=== PATIENT | female | born 1955 | race Caucasian/White ===

== ENCOUNTER 2018-09-20 16:20 | Emergency (ER) | payer BC, SELFPAY ==
[2018-09-20 16:20] VITALS: BP 159/81; PULSE 86; RESP 16; TEMP 36.4; O2SAT 98; BMI 33.4
--- NOTE | 2018-09-20 16:49 | ED.VISSUMM ---
- ER Visit Summary Date of Service: 09/20/18 Chief Complaint: Right knee pain post injury or History of Present Illness: The patient is a 63 F past medical history of a prior right knee meniscal tear seen on MRI the past. Patient is also diabetic and has hypertension. She is on Eliquis for hypercoagulable state. She works at an area [employer] was unloading a box and twisted quickly to put it on the ground causing pain in her right knee has progressively worsened since yesterday. She states the right knee hurts on the medial aspect. She denies any other trauma. She denies any fever or redness. She denies any surgery on her right knee in the past. Physical Examination: Well appearing female. Vital signs are stable and afebrile. HEENT exam unremarkable. Neck nontender. Lungs clear to auscultation bilaterally. Heart regular rate and rhythm no murmur. Abdomen soft nontender. Extremities she is moving all 4 with a neurovascular intact. Her right knee has pain on the medial aspect. To palpation. There is no ecchymosis or bruising. No redness or warmth. No effusion or significant swelling. She is able to flex and extend the right knee. Her quadriceps patella and inferior patella tendon are both intact. The ACL and PCL appear to be intact to have good endpoints. The LCL and MCL appear to be intact also. There is no obvious effusion. Currently the tenderness is more along the left lateral and anterolateral knee then over the joint line. The right foot is nontender. Nonswollen. Neurovascular intact. Positive DP pulse. Positive dorsi and plantar flexion. Test Results: Discussed with patient imaging is not needed at this time she is comfortable with that plan. Emergency Department Course and Treatment: [place] for pain. Ice and elevate. Treatment Plan: Ice and elevate. Crutches at home. Limited [place] for pain. Follow-up with her orthopedic physician Dr. Venkat Dailey if not improving. She knows she may need advanced imaging such as an MRI if this is not improving. Disposition: Discharge Impression: Acute right knee sprain Workers comp injury This note was generated with [employer] software. It may contain incorrect words, spelling, and punctuation that were not noted in review of the chart prior to signing ED Disposition - Plan for ED Patient: Chief Complaint: Lower Extremity Injury Referrals: lAec Arceo MD [Primary Care Provider] -
--- NOTE | 2018-09-20 16:54 | ED.DCSUM_ITS ---
- ER Visit Summary Date of Service: 09/20/18 Chief Complaint: Right knee pain post injury or History of Present Illness: The patient is a 63 F past medical history of a prior right knee meniscal tear seen on MRI the past. Patient is also diabetic and has hypertension. She is on Eliquis for hypercoagulable state. She works at an area [email or web address] was unloading a box and twisted quickly to put it on the ground causing pain in her right knee has progressively worsened since yesterday. She states the right knee hurts on the medial aspect. She denies any other trauma. She denies any fever or redness. She denies any surgery on her right knee in the past. Physical Examination: Well appearing female. Vital signs are stable and afebrile. HEENT exam unremarkable. Neck nontender. Lungs clear to auscultation bilaterally. Heart regular rate and rhythm no murmur. Abdomen soft nontender. Extremities she is moving all 4 with a neurovascular intact. Her right knee has pain on the medial aspect. To palpation. There is no ecchymosis or bruising. No redness or warmth. No effusion or significant swelling. She is able to flex and extend the right knee. Her quadriceps patella and inferior patella tendon are both intact. The ACL and PCL appear to be intact to have good endpoints. The LCL and MCL appear to be intact also. There is no obvious effusion. Currently the tenderness is more along the left lateral and anterolateral knee then over the joint line. The right foot is nontender. Nonswollen. Neurovascular intact. Positive DP pulse. Positive dorsi and plantar flexion. Test Results: Discussed with patient imaging is not needed at this time she is comfortable with that plan. Emergency Department Course and Treatment: [place] for pain. Ice and elevate. Treatment Plan: Ice and elevate. Crutches at home. Limited [place] for pain. Follow-up with her orthopedic physician Dr. Venkat Dailey if not improving. She knows she may need advanced imaging such as an MRI if this is not improving. Disposition: Discharge Impression: Acute right knee sprain Workers comp injury This note was generated with [employer] software. It may contain incorrect words, spelling, and punctuation that were not noted in review of the chart prior to signing ED Disposition - Plan for ED Patient: Chief Complaint: Lower Extremity Injury Referrals: Alec Arceo MD [Primary Care Provider] -
--- NOTE | 2018-09-20 16:54 | ED.DEP ---
ED Disposition - Plan for ED Patient: Disposition: Home or Assisted Living Chief Complaint: Lower Extremity Injury Instructions: ED Sprain Knee Prescriptions: Hydrocodone/Acetaminophen [[place] 7.5-325 Tablet] 1 ea PO Q6H PRN PRN #16 tab PRN Reason: Pain Referrals: Alec Arceo MD [Primary Care Provider] - Additional Instructions: Ice and elevate. [place] for pain as needed. Do not drive while using the [place]. Crutches and increase weightbearing activity as tolerated. Call and follow-up with orthopedic doctor Dr. Venkat Dailey if not improving in 1-2 weeks for further evaluation. If pain not improving you may need more advanced imaging such as an MRI. Off work next 2 days.
--- NOTE | 2018-09-20 16:57 | DCINST.ED_ITS ---
ED Disposition - Plan for ED Patient: Disposition: Home or Assisted Living Chief Complaint: Lower Extremity Injury Instructions: ED Sprain Knee Prescriptions: Hydrocodone/Acetaminophen [[place] 7.5-325 Tablet] 1 ea PO Q6H PRN PRN #16 tab PRN Reason: Pain Referrals: Alec Arceo MD [Primary Care Provider] - Additional Instructions: Ice and elevate. [place] for pain as needed. Do not drive while using the [place]. Crutches and increase weightbearing activity as tolerated. Call and follow-up with orthopedic doctor Dr. Venkat Dailey if not improving in 1-2 weeks for further evaluation. If pain not improving you may need more advanced imaging such as an MRI. Off work next 2 days.
[2018-09-20] MEDS: HYDROcodone Bitartrate/Apap 5/325 Tablet PO (17:07)
--- OUTSIDE RECORDS SUMMARY | 2018-11-16 09:24 | XMS RPT_ITS ---
:1955 Author Organization [facility] Address [address] [place] [phone] Phone Care Team Providers Name Role Phone Donn Jarquin Unavailable Reason for Visit Reason For Visit Description Start Date Postop - subsequent visit Preliminary reason for visit data, not yet signed by the author as of left hip post Left hip scope with gluteus medius and minimus repair; allograft augmentation 20 x 18 x 3.6 mm thickness; Trochanteric bursectomy; Iliotibial band resection on 04/13/2018 Preliminary reason for visit data, not yet signed by the author as of Chief Complaint Chief Complaint Description Start Date left hip post Left hip scope with gluteus medius and minimus repair; allograft augmentation 20 x 18 x 3.6 mm thickness; Trochanteric bursectomy; Iliotibial band resection on 04/13/2018 Preliminary chief complaint data, not yet signed by the author as of Instructions Instruction Description Start Date CompletedPatient advised to follow-up with Primary Care Physician for BMI management. Plan of Care Type Date Detail Appointment 11:00 AM Donn GOMEZ, [address], [address], [place], [address], Appointment 10:40 AM Donn GOMEZ, [address], [address], [place], [address], Medications Medication Instructions Start Stop Generic Name NDC Provider Date Date TYLENOL CAPS as needed / ACETAMINOPHEN [id number] Derik R 31 CAPS Mendez FINE B-12 2500 MCG 1 tablet daily / CYANOCOBALAMIN 10541156625 Cara Monroy TABS 02 HAIRSPRING STAKER CENTRUM SILVER 1 tablet daily / MULTIPLE [id number] Cara Mnoroy TABS 02 VITAMINS-MINERAL HAIRSPRING STAKER S FENOFIBRATE 1 capsule daily / FENOFIBRATE 71666300909 Cara Monroy MICRONIZED 200 02 MICRONIZED HAIRSPRING STAKER MG CAPS NORTRIPTYLINE 1 capsule daily / NORTRIPTYLINE 49717181748 Cara Monroy HCL 25 MG CAPS 02 HCL HAIRSPRING STAKER LISINOPRIL-HYDRO 1 tablet daily / LISINOPRIL-HYDRO 63718336533 Cara Monroy CHLOROTHIAZIDE 02 CHLOROTHIAZIDE HAIRSPRING STAKER 10-12.5 MG TABS METFORMIN HCL 1 tablet twice / METFORMIN HCL 30212496742 Cara Monroy 850 MG TABS daily 02 HAIRSPRING STAKER ELIQUIS 2.5 MG 1 tablet twice / APIXABAN 28961387987 Cara Monroy TABS daily 02 HAIRSPRING STAKER CITALOPRAM 1 tablet daily / CITALOPRAM 75732477917 Cara Monroy HYDROBROMIDE 40 02 HYDROBROMIDE HAIRSPRING STAKER MG TABS GLIMEPIRIDE 2 MG 1 tablet daily / GLIMEPIRIDE 74078080129 Cara Monroy TABS 02 HAIRSPRING STAKER METOPROLOL 2 tablets at 2 / METOPROLOL 74879570986 Cara Monroy TARTRATE 50 MG am morning and 02 TARTRATE HAIRSPRING STAKER TABS 1 tablet in the afternoon 1pm Conditions or Problems Problem Name Problem Onset Status Entry Provider Comment Standard Annotate Code Date Date Description Strain of S76.012D Active Derik Lezama Strain of High muscle fascia (ICD-10-C / Laskovski muscle, grade and tendon of M) fascia and glut med left hip tendon of tear subsequent left hip, encounter subsequent encounter Trochanteric M70.62 Active Derik Lezama Trochanteric bursitis left (ICD-10-C / Laskovski bursitis, hip M) left hip Allergies, Adverse Reactions, Alerts Allergy Name Reaction Start Date Severity Status Provider Description WALNUTS Critical Active Cara Monroy HAIRSPRING STAKER WOOL Critical Active Cara Monroy HAIRSPRING STAKER LATEX Critical Active Cara Monroy HAIRSPRING STAKER CODEINE Critical Active Cara Monroy PHOSPHATE HAIRSPRING STAKER Social History No information available. Vital Signs Date Name Value Unit Description BMI (Body Mass 29.16 kg/m2 Body Mass Index Index) [Ratio] Preliminary vital sign data, not yet signed by the author as of BP Diastolic 82 mm[Hg] blood pressure, diastolic Preliminary vital sign data, not yet signed by the author as of BP Systolic 121 mm[Hg] blood pressure, systolic Preliminary vital sign data, not yet signed by the author as of Heart Rate 70 /min pulse rate E&M Preliminary vital sign data, not yet signed by the author as of Height 66 [in_us] height E&M Preliminary vital sign data, not yet signed by the author as of Height 168 cm height in centimeters E&M Preliminary vital sign data, not yet signed by the author as of Weight Measured 180 [lb_av] weight E&M Preliminary vital sign data, not yet signed by the author as of Weight Measured 82 kg weight in kilograms E&M Preliminary vital sign data, not yet signed by the author as of Results Date Name Value Unit Range Flag Description Office Visit: Postop - subsequent visit, Rm: 6 MEDS REVIEW Done Documentation of current medications (procedure) Preliminary observation data, not yet signed by the author as of Preliminary observation data, not yet signed by the author as of Clinical Summary: HMSPatientID GOP account number Procedures Code Procedure Name Date Entry Date G8731 Pain assessment documented as negative - follow-up not required G8427 Current medications documented [id number] Tobacco screening or cessation counseling not performed - unknown reason G8417 BMI documented as above normal parameters - follow-up documented G8783 Blood pressure within normal parameters - no follow-up required [facility]-[id number] Patient Encounter Medications Administered No information available. Immunizations No information available. Advance Directives There may be information available, but it has not been provided by the sender. Assessments There may be information available, but it has not been provided by the sender. Review of Systems There may be information available, but it has not been provided by the sender. Family History There may be information available, but it has not been provided by the sender. History of Past Illness There may be information available, but it has not been provided by the sender. History of Present Illness There may be information available, but it has not been provided by the sender.
--- OUTSIDE RECORDS SUMMARY | 2018-11-16 09:25 | XMS RPT_ITS ---
:1955 Author Organization [facility] Address [address] [place] [phone] Phone Care Team Providers Name Role Phone Mendez FINE, Derik Lezama Unavailable Reason for Visit Reason For Visit Description Start Date New - 1st visit with practice Preliminary reason for visit data, not yet signed by the author as of left hip pain Preliminary reason for visit data, not yet signed by the author as of Chief Complaint Chief Complaint Description Start Date left hip pain Preliminary chief complaint data, not yet signed by the author as of Instructions Instruction Description Start Date CompletedPatient advised to follow-up with Primary Care Physician for BMI management. Plan of Care Type Date Detail Appointment 12:00 PM Derik Simms MD, [address] [place] [address], [address], [place], [address], Pending order XR PELVIS W HIP 2-3 VWS-LT Patient education [id number] Medications Medication Instructions Start Stop Generic Name NDC Provider Date Date -12 2500 MCG 1 tablet daily / CYANOCOBALAMIN 62862319941 Cara TABS 02 Monroy CAR SEAT UPHOLSTERER CENTRUM SILVER 1 tablet daily / MULTIPLE 94935247445 Cara TABS 02 VITAMINS-MINERAL Monroy CAR SEAT UPHOLSTERER S FENOFIBRATE 1 capsule daily / FENOFIBRATE 14113032841 Cara MICRONIZED 200 02 MICRONIZED Monroy CAR SEAT UPHOLSTERER MG CAPS NORTRIPTYLINE 1 capsule daily / NORTRIPTYLINE 50648284177 Cara HCL 25 MG CAPS 02 HCL Monroy CAR SEAT UPHOLSTERER LISINOPRIL-HYDRO 1 tablet daily / LISINOPRIL-HYDRO 50203737340 Cara CHLOROTHIAZIDE 02 CHLOROTHIAZIDE Monroy CAR SEAT UPHOLSTERER 10-12.5 MG TABS METFORMIN HCL 1 tablet twice / METFORMIN HCL 43782796630 Cara 850 MG TABS daily 02 Monroy CAR SEAT UPHOLSTERER ELIQUIS 2.5 MG 1 tablet twice / APIXABAN 09178729818 Cara TABS daily 02 Monroy CAR SEAT UPHOLSTERER CITALOPRAM 1 tablet daily / CITALOPRAM 73795719635 Cara HYDROBROMIDE 40 02 HYDROBROMIDE Monroy CAR SEAT UPHOLSTERER MG TABS GLIMEPIRIDE 2 MG 1 tablet daily / GLIMEPIRIDE 13199839469 Cara TABS 02 Monroy CAR SEAT UPHOLSTERER METOPROLOL 2 tablets at 2 / METOPROLOL 84446729714 Cara TARTRATE 50 MG am morning and 02 TARTRATE Monroy CAR SEAT UPHOLSTERER TABS 1 tablet in the afternoon 1pm Conditions or Problems Problem Name Problem Onset Status Entry Provider Comment Standard Annotate Code Date Date Description Strain of S76.012D Active Derik R Strain of High muscle fascia (ICD-10-C Laskovski muscle, grade and tendon of M) fascia and glut med left hip tendon of tear subsequent left hip, encounter subsequent encounter Trochanteric M70.62 Active Derik R Trochanteric bursitis left (ICD-10-C Laskovski bursitis, hip M) left hip Allergies, Adverse Reactions, Alerts Allergy Name Reaction Start Date Severity Status Provider Description WALNUTS Critical Active Cara Monroy CAR SEAT UPHOLSTERER WOOL Critical Active Cara Monroy CAR SEAT UPHOLSTERER LATEX Critical Active Cara Monroy CAR SEAT UPHOLSTERER CODEINE Critical Active Cara Monroy PHOSPHATE CAR SEAT UPHOLSTERER Social History Concept Description Observation Name Observation Value Units Start Date Employment detail 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 [employer] Preliminary social history data, not yet signed by the author as of Tobacco use and SMOK ADVICE Yes exposure Preliminary social history data, not yet signed by the author as of Vital Signs Date Name Value Unit Description BMI (Body Mass 29.16 kg/m2 Body Mass Index Index) [Ratio] Preliminary vital sign data, not yet signed by the author as of BP Diastolic 88 mm[Hg] blood pressure, diastolic Preliminary vital sign data, not yet signed by the author as of BP Systolic 139 mm[Hg] blood pressure, systolic Preliminary vital sign data, not yet signed by the author as of Heart Rate 79 /min pulse rate E&M Preliminary vital sign [...] Value Unit Range Flag Description Office Visit: New - 1st visit with practice, Rm: MEDS REVIEW Done Documentation of current medications (procedure) Preliminary observation data, not yet signed by the author as of SMOK ADVICE Yes Smoking cessation education (procedure) Preliminary observation data, not yet signed by the author as of Preliminary observation data, not yet signed by the author as of Clinical Summary: HMSPatientID GOP account number Clinical Lists Update: Preload Extended SMOK STATUS current everyday Tobacco smoker smoking status NHIS Clinical Summary: Scanned History Summary DEP EXERCISE No data entered by patient, exercise history DEP DRUG USE No data entered by patient, drug (of abuse) use DEP SH CSMO current everyday smoker data entered by patient, social history, current smoker DEP ETOH USE No data entered by patient, alcohol (ethanol or ETOH) use [employer] 2 floors housing unit size (asthma environmental history, housing) (from single family to don't know) #DEP CHLDRN No Number of dependent children [place] house Housing Type: apartment, house, halfway, trailer, none DEP SH MAST data entered by patient, social history, marital status 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 employed data entered by patient, Employer Name [employer] comments about allergies DEP ALG LIST CodeineLatexWool Data entered by patient, allergy list DEP MED LIST [id number] Data entered by tabs-2am patient, 8lllitagraugww-0gg-9 medication list tab-dailycitalopram jtipilnpakzq-48lq-8 myg-jiiwfzalbqpam-9.5mg -1 tab-twice dailymetformin hcl-850mg-1 tab-twice dailylisinopril and hydrochlorothiazide-10m g/12.5-1 tab-dailynortriptyline hcl-25mg-1 crf-jhbbulrfschzwiil-41 7ra-6vxz-fqnoulrbnjkt silver-Unknown Strength-1 tab-dailyVitamin h-47-5588jp-1 tab-daily [facility] COM Kidney stones medical history of patient's sister, comments DEATHCAU MOM septic from hospital cause of , needle mother MOTHER A/D mother of patient is alive or [facility] MOM [facility] High blood data entered by pressureStroke/TIA patient, mother's medical history DEATHCAU DAD alcoholism cause of , father FATHER A/D father of patient is alive or [facility] DAD [facility] AlcoholismGoutHigh data entered by blood pressureLiver patient, father's diseaseObesity medical history [facility] Blood clotsDiabetes - data entered by non-insulin patient, past dependentDiabetic medical history neuropathyHigh blood pressureHigh cholesterolObesity WEBSURGCOM Rotator Cuff w/mini Web entered open surgical history comments DEP SURGERY Hip [facility] - Data [facility], history otherTonsillectomy of past surgeries Procedures Code Procedure Name Date Entry Date C3576T [facility] [place] COMBO - HIP (BREG) [id number] CRUTCHES - ADULT ([facility]) [id number] MOBILEG ULTRA CRUTCHES (MOBILEGS) G8730 Pain assessment documented as positive - follow-up documented G8427 Current medications documented 4004F Tobacco screening was positive - cessation counseling received G8417 BMI documented as above normal parameters - follow-up documented G8783 Blood pressure within normal parameters - no follow-up required [facility]-[id number] Patient Encounter Medications Administered No information available. [...]
--- OUTSIDE RECORDS SUMMARY | 2018-11-16 09:25 | XMS RPT_ITS ---
:1955 Author Organization OHIP Care Team Providers Name Role Phone Salvador Moreno Attending Unavailable Alec Arceo Primary Care Unavailable Alec Arceo Attending Unavailable Alec Arceo Primary Care Unavailable Alec Arceo Primary Care Unavailable Wes Guzman Attending Unavailable PROBLEMS PROBLEMS DATE TYPE CONDITION / CODE ATTENDING STATUS SOURCE 09/20/2018 Unknown S83.90XA - Wes Morris Active [facility] of unspecified site Community of unspecified Hospital knee, initial Repository encounter / S83.90XA(ICD-10) 11/22/2017 Unknown D68.59 - Other Alec Arceo Active [facility] primary Community thrombophilia / Hospital D68.59(ICD-10) Repository 10/29/2017 Unknown I83.10 - Varicose Salvador Moreno veins of Community unspecified lower Hospital extremity with Repository inflammation / I83.10(ICD-10) 10/29/2017 Unknown 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[facility] (peripheral) / Repository I87.2(ICD-10) 10/29/2017 Unknown I82.813 - Embolism Salvador Moreno and thrombosis of [facility] superficial veins Hospital of lower Repository extremities, bilateral / I82.813(ICD-10) 10/29/2017 Unknown M79.606 - Pain in Salvador Moreno leg, unspecified / Community M79.606(ICD-10) Hospital Repository PROCEDURES PROCEDURES No Procedure Records FoundRESULTS RESULTS EMERGENCY DEPARTMENT Observed: 09/20/2018 Status: F Source: [place] SUMMARY 11:04 PM [facility] [place] [facility] Medical Records Department [address] [place] [address] Emergency Department Summary 09/20/18 1649 MR#: [id number] Acct: [id number] Name: JUANIS ADAME Rep #: [id number] : 1955 63 From: Wes Guzman MD PCP: Alec Arceo MD Status: DEP ER - ER Visit Summary Date of Service: 09/20/18 Chief Complaint: Right knee pain post injury or History of Present Illness: The patient is a 63 F past medical history of a prior right knee meniscal tear seen on MRI the past. Patient is also diabetic and has hypertension. She is on Eliquis for hypercoagulable state. She works at an area [employer] was unloading a box and twisted quickly to put it on the ground causing pain in her right knee has progressively worsened since yesterday. She states the right knee hurts on the medial aspect. She denies any other trauma. She denies any fever or redness. She denies any surgery on her right knee in the past. Physical Examination: Well appearing female. Vital signs are stable and afebrile. HEENT exam unremarkable. Neck nontender. Lungs clear to auscultation bilaterally. Heart regular rate and rhythm no murmur. Abdomen soft nontender. Extremities she is moving all 4 with a neurovascular intact. Her right knee has pain on the medial aspect. To palpation. There is no ecchymosis or bruising. No redness or warmth. No effusion or significant swelling. She is able to flex and extend the right knee. Her quadriceps patella and inferior patella tendon are both intact. The ACL and PCL appear to be intact to have good endpoints. The LCL and MCL appear to be intact also. There is no obvious effusion. Currently the tenderness is more along the left lateral and anterolateral knee then over the joint line. The right foot is nontender. Nonswollen. Neurovascular intact. Positive DP pulse. Positive dorsi and plantar flexion. Test Results: Discussed with patient imaging is not needed at this time she is comfortable with that plan. Emergency Department Course and Treatment: [place] for pain. Ice and elevate. Treatment Plan: Ice and elevate. Crutches at home. Limited [place] for pain. Follow-up with her orthopedic physician Dr. Venkat Dailey if not improving. She knows she may need advanced imaging such as an MRI if this is not improving. Disposition: Discharge Impression: Acute right knee sprain Workers comp injury This note was generated with Routeware dictation software. It may contain incorrect words, spelling, and punctuation that were not noted in review of the chart prior to signing ED Disposition - Plan for ED Patient: Chief Complaint: Lower Extremity Injury Referrals: Alec Arceo MD [Primary Care Provider] - What to do if you have Problems For any increased pain, shortness of breath, bleeding, nausea or vomiting, chest pain, or any unexpected problems, contact your Primary Care Provider. Call [facility] ([phone]) or report to the closest Emergency Room. Call 911 if necessary. 09/20/18 2974 <Electronically signed by Wes Guzman MD> Date Wes Guzman MD Cosigner Signature (If Indicated): Date CC: Alec Arceo MD DISCHARGE INSTRUCTION Observed: 09/20/2018 Status: F Source: [place] 11:04 PM [facility] Records Department [address] [place] [address] Discharge Instruction 09/20/18 1654 MR#: [id number] Acct: [id number] Name: JUANIS ADAME Rep #: [id number] : 1955 63 From: Wes Guzman MD PCP: Alec Arceo MD Status: DEP ER ED Disposition - Plan for ED Patient: Disposition: Home or Assisted Living Chief Complaint: Lower Extremity Injury Instructions: ED Sprain Knee Prescriptions: Hydrocodone/Acetaminophen [[place] 7.5-325 Tablet] 1 ea PO Q6H PRN PRN #16 tab PRN Reason: Pain Referrals: Alec Arceo MD [Primary Care Provider] - Additional Instructions: Ice and elevate. [place] for pain as needed. Do not drive while using the [place]. Crutches and increase weightbearing activity as tolerated. Call and follow-up with orthopedic doctor Dr. Venkat Dailey if not improving in 1-2 weeks for further evaluation. If pain not improving you may need more advanced imaging such as an MRI. Off work next 2 days. What to do if you have Problems For any increased pain, shortness of breath, bleeding, nausea or vomiting, chest pain, or any unexpected problems, contact your Primary Care Provider. Call [facility] ([phone]) or report to the closest Emergency Room. Call 911 if necessary. 09/20/18 3094 <Electronically signed by Wes Guzman MD> Date Wes Guzman MD Cosigner Signature (If Indicated): Date CC: Alec Arceo MD HOMOCYSTEINE Collected: 11/11/2017 Status: F Source: [place] 1:11 PM [facility] [place] TYPE CODE TESTS RESULT OUT OF REFERENCE UNITS RANGE LAB L503.8001 3.2-10.7 umol/L HOMOCYSTEINE High 14.5 Performed By: #### L503.8001 #### [facility] Laboratory [address] [place], [address] MISCELLANEOUS LAB Collected: 11/11/2017 Status: F Source: [place] PROCEDURE 1:11 PM [facility] [place] Order Comment: Comments: [id number] PROT C ACTIVITY FZ PL Test(s) Ordered: [id number] PROT C ACTIVITY FZ PL TYPE CODE TESTS RESULT OUT OF RANGE REFERENCE UNITS LAB L801.1541 Normal MISC LAB TEST Result Comment: TEST RESULT LIMITS Prt C Activity (Chromogenic) 141 % Reference Range: 17 years and older: 73 - 180 TESTING PERFORMED AT [facility]. ORIGINAL REPORT ON FILE IN LAB CONTAINS ADDITIONAL TEST SITE INFORMATION. Performed By: #### L801.1541 #### [facility] [address] [place], [address] PROTEIN S, FUNCTIONAL Collected: 11/11/2017 Status: F Source: [place] 1:11 PM [facility] [place] [facility] Order Comment: Comments: [id number] PROT C ACTIVITY FZ PL TYPE CODE TESTS RESULT OUT OF RANGE REFERENCE UNITS LAB L3100.7260 63-140 % Normal PROTEIN S, 94 FUNC Result Comment: Protein S activity may be falsely increased (masking an abnormal, low result) in patients receiving direct Xa inhibitor (e.g., rivaroxaban, apixaban, edoxaban) or a direct thrombin inhibitor (e.g., dabigatran) anticoagulant treatment due to assay interference by these drugs. Performed at: [facility] [id number] Blood Donor Unit Assistant: Chan Ivan MD, Phone: [phone] Performed at: [facility] [address] [place], [place] [id number] Blood Donor Unit Assistant: Maylin Leger MD, Phone: [phone] Performed By: #### L3100.7250, L4500.0100, L4500.2000, L4500.5000, L4600.0155 #### [facility] (refer to report for specific site) refer to report for address and phone number LUPUS ANTICOAGULANT COMP Collected: 11/11/2017 Status: F Source: [place] 1:11 PM [facility] [place] Order Comment: Comments: [id number] PROT C ACTIVITY FZ PL TYPE CODE TESTS RESULT OUT OF REFERENCE UNITS RANGE LAB L4500.0125 0.0-55.0 sec DILUTE PT (dPT) Normal 47.6 LAB L4500.0150 0.00-1.40 Ratio dPT Conf. Ratio Normal 1.11 LAB L4500.0200 0.0-23.0 sec THROMBIN TIME Normal 21.1 LAB L4500.0600 0.0-51.9 sec PTT-LA Normal 29.0 LAB L4500.1000 0.0-47.0 sec DRVVT Normal 42.5 LAB L4500.1300 . Interpretation Normal Comment: Result Comment: No lupus anticoagulant was detected. Performed By: #### L3100.7250, L4500.0100, L4500.2000, L4500.5000, L4600.0155 #### [facility] (refer to report for specific site) refer to report for address and phone number FACTOR II, DNA Collected: 11/11/2017 Status: F Source: [place] ANALYSIS 1:11 PM [facility] [place] Order Comment: Comments: [id number] PROT C ACTIVITY FZ PL TYPE CODE TESTS RESULT OUT OF RANGE REFERENCE UNITS LAB L4500.2100 . Normal FACTOR Comment II,DNA Result Comment: NEGATIVE No mutation identified. Comment: A point mutation (Z16307M) in the factor II (prothrombin) gene is the second most common cause of inherited thrombophilia. The incidence of this mutation in the [place] population is about 2% and in the population it is approximately 0.5%. This mutation is rare in the and population. Being heterozygous for a prothrombin mutation increases the risk for developing venous thrombosis about 2 to 3 times above the general population risk. Being homozygous for the prothrombin gene mutation increases the relative risk for venous thrombosis further, although it is not yet known how much further the risk is increased. In women heterozygous for the prothrombin gene mutation, the use of estrogen containing oral contraceptives increases the relative risk of venous thrombosis about 16 times and the risk of developing cerebral thrombosis is also significantly increased. In the prothrombin gene mutation increases risk for venous thrombosis and may increase risk for stillbirth, placental abruption, pre-eclampsia and growth restriction. If the patient possesses two or more congenital or acquired thrombophilic risk factors, the risk for thrombosis may rise to more than the sum of the risk ratios for the individual mutations. This assay detects only the prothrombin Q34342H mutation and does not measure genetic abnormalities elsewhere in the genome. Other thrombotic risk factors may be pursued through systematic clinical laboratory analysis. These factors include the R506Q (Leiden) mutation in the Factor V gene, plasma homocysteine levels, as well as testing for deficiencies of antithrombin III, protein C and protein S. LAB L4500.0824 . Normal COMMENT Comment Result Comment: Genetic Counselors are available for health care providers to discuss results at [phone] Methodology: DNA analysis of the Factor II gene was performed by PCR amplification followed by restriction analysis. The diagnostic sensitivity is >99% for both. All the tests must be combined with clinical information for the most accurate interpretation. Molecular-based testing is highly accurate, but as in any laboratory test, diagnostic errors may occur. This test was developed and its performance characteristics determined by [employer]. It has not been cleared or approved by the Food and Drug Administration. Poort SR, et al. Blood. 1996; 88:3398-0651. Delfina EA. Circulation. 2004; 110:e15-e18. Dakota I, et al. Arterioscler Thromb Vasc Biol. 1999; 19:700-703. Dorothea Saucedo, PhD, [facility] Cara Dubon, PhD, [facility] Nimco Murillo, PhD, [facility] Elisabeth Singh M.S., PhD, [facility] Taty Marte, PhD, [facility] Aaliyah Valverde, PhD, [facility] Aaorn Steen, PhD, [facility] Performed By: #### L3100.7250, L4500.0100, L4500.2000, L4500.5000, L4600.0155 #### [facility] (refer to report for specific site) refer to report for address and phone number FACT V LEIDEN Collected: 11/11/2017 Status: F Source: [place] MUTATION 1:11 PM [facility] [place] Order Comment: Comments: [id number] PROT C ACTIVITY FZ PL TYPE CODE TESTS RESULT OUT OF REFERENCE UNITS RANGE LAB L4500.5100 . High FACTOR V Comment LEIDEN Result Comment: RESULT: SINGLE R506Q MUTATION IDENTIFIED (HETEROZYGOTE) Factor V Leiden is a specific mutation (R506Q) in the factor V gene that is associated with an increased risk of venous thrombosis. Factor V Leiden is more resistant to inactivation by activated protein C. As a result, factor V persists in the circulation leading to a mild hypercoagulable state. Factor V Leiden has been reported in patients with deep vein thrombosis, pulmonary embolus, central retinal vein occulsion, cerebral sinus thrombosis, and hepatic vein thrombosis. The relative risk of venous thrombosis is increased approximately 4-8 fold in individuals who are heterozygous. About 3-8% of the general [place] and population are heterozygous. The risk of venous thrombosis increases exponentially in patients with more than one risk factor, including: age, surgery, oral contraceptive use, , elevated homocysteine levels, or a Factor II/prothrombin mutation (K48603K). Additionally, for individuals found to be heterozygous for the Factor V Leiden mutation, presence of a second mutation, Factor V R2, further increases the risk if venous thrombosis. Contact [facility]'s Genetics Customer Service at for further information on both the Factor II (Prothrombin) DNA Analysis, and Factor V R2 DNA Analysis tests. LAB L4500.5200 . Normal COMMENT Comment Result Comment: Genetic counselors are available for health care providers to discuss results at [phone] Methodology: DNA analysis of the Factor V gene was performed by allele- specific PCR. The diagnostic sensitivity and specificity is >99% for both. Molecular-based testing is highly accurate, but as in any laboratory test, diagnostic errors may occur. All test results must be combined with clinical information for the most accurate interpretation. This test was developed and its performance characteristics determined by [facility]. It has not been cleared or approved by the Food and Drug Administration. References: Dayo Montana (1996). Clin Lab Med 16:169-186. Dorothea Saucedo, PhD, [facility] Cara Dubon, PhD, [facility] Nimco Murillo, PhD, [facility] Elisabeth Singh M.S., PhD, [facility] Taty Marte, PhD, [facility] Aaliyah Valverde, PhD, [facility] Aaron Steen PhD, [facility] Performed By: #### L3100.7250, L4500.0100, L4500.2000, L4500.5000, L4600.0155 #### [facility] (refer to report for specific site) refer to report for address and phone number MTHFR DNA VARIANT Collected: 11/11/2017 Status: F Source: [place] 1:11 PM [facility] [place] Order Comment: Comments: [id number] PROT C ACTIVITY FZ PL TYPE CODE TESTS RESULT OUT OF RANGE REFERENCE UNITS LAB L4600.0205 . Normal MTHFR DNA Comment Result Comment: Result: C677T/F8217M Two mutations (C677T and G1341R) identified Interpretation: This individual is heterzygous for both the MTHFR C677T and C8733P variants (one copy of each). Compound heterozygosity for the C677T and G3946J variants is unlikely to be of clinical significance, based on consensus of published reports. This combination of results, however, may be associated with increased risk for the development of hyperhomocysteinemia when the individual is deficient in folate, vitamin B6, or vitamin B12. A fasting homocysteine level should be measured. This genotype alone in the absence of hyperhomocysteinemia, does not increase risk of venous thrombosis, coronary artery disease or recurrent loss. However, hyperhomocysteinemia may also occur due to mutations in enzymes other than MTHFR that are involved in homocysteine metabolism, or arise due to acquired factors. In the evaluation of vascular and obstetric risk, consider measuring fasting homocysteine. Additional risk factors may be detected through systematic clinical laboratory analysis. LAB L4600.0250 Normal COMMENT Result Comment: Methylenetetrahydrofolate reductase (MTHFR) is a ochoa enzyme in the folate pathway and is responsible for the metabolism of homocysteine. There are two common variants in the MTHFR gene, c.655c>T (p.Dej798Xddc), referred to as C677T, and c.1286A>C (p.Aic151Obx), referred to as I7314K. Individuals homozygous for C677T (two copies of the variant), have decreased activity of the MTHFR enzyme and a predisposition to hyperhomocysteinemia, particularly when deficient in folate. Hyperhomocysteinemia is a risk factor for venous thrombosis and coronary artery disease and is associated with an increased risk of open neural tube defects. The C677T variant does not independently increase risk of these conditions in the absence of hyperhomocysteinemia. The C4301P variant is not associated with elevated homocysteine levels unless a C677T variant is also present; however, the clinical significance of heterozygosity for both C677T and X2097S is controversial. Population data suggest that these two variants are not present on the same chromosome, but rare exceptions have been reported of triple variant MTHFR genotypes (ie. homozygous for one variant and heterozygous for the other). Homozygosity for C677T has an estimated frequency of 10% to 15% in Caucasians and 25% in Hispanics. Additional information: Dietary folic acid, B6 and B12 supplementation has been suggested to lower homocysteine levels in some people. Folic acid supplementation has been shown to reduce the occurrence of neural tube defects. Genetic counselors are available for health care providers to discuss results at [phone]. Methodology: DNA analysis of the MTHFR gene was performed by PCR amplification followed by restriction analysis. The diagnostic sensitivity is >99% for both. Molecular-based testing is highly accurate, but as in any laboratory test, rare diagnostic errors may occur. All test results must be combined with clinical information for the most accurate interpretation. This test was developed and its performance characteristics determined by [employer]. It has not been cleared or approved by the Food and Drug Administration. References: Lennyo LD, York Q. Am J Epidemiol 2000; 151(9):862-877. Marci MM, Charles JA. Arch Pathol Lab Med 2007; 131(6):872-884. Frosst P et al. Yvette Teagan 1995; 10(1):111-113. Shareekey SE et al. Teagan Med 2013; 15(2):153-156. Colbert C et al. Obstet Gynecol 2011; 118(3):730-740. Jus B et al. Eur J Epidemiol 2013; 28(8):621-647. Dorothea Saucedo, PhD, [facility] Cara Dubon, PhD, [facility] Nimco Murillo, PhD, [facility] Elisabeth Singh M.S., PhD, [facility] Taty Marte, PhD, [facility] Aaliyah Valverde, PhD, [facility] Aaron Steen, PhD, [facility] Performed By: #### L3100.7250, L4500.0100, L4500.2000, L4500.5000, L4600.0155 #### [facility] (refer to report for specific site) refer to report for address and phone number VENOUS DUPLEX LOWER Observed: 10/29/2017 Status: F Source: [place] EXTREMITY 4:44 PM [facility] [place] [facility] Cardiovascular Services [address] [place] [address] Venous Duplex US - Fly Extrem 10/29/17 0938 MR#: [id number] Acct: [id number] Name: JUANIS ADAME Rep #: [id number] : 1955 62 From: Salvador Moreno MD Attending Dr: Salvador Moreno MD Status: REG CLI Ordering Dr: Salvador Moreno MD Date: 10/29/17 Location: [facility] Sex: F C Admitted: Reason For Study: F/U SVT RIGHT LEFT CFV is compressible, spontaneous, phasic, CFV is compressible, spontaneous, phasic, competent and demonstrates normal competent, and demonstrates normal augmentation. augmentation. FV is compressible, spontaneous, phasic, FV is compressible, spontaneous, phasic, competent and demonstrates normal competent and demonstrates normal augmentation. augmentation. POP V is compressible, spontaneous, phasic, POP V is compressible, spontaneous, phasic, competent and demonstrates normal competent and demonstrates normal augmentation. augmentation. T/P Trunk is compressible. T/P Trunk is compressible. PTV is compressible. PTV is compressible. RT PerV is compressible. LT PerV is compressible. GSV is non -compressible from prox thigh to GSV is non-compressible from mid thigh to ankle ankle SSV is non-compressible from prox calf to SSV is compressible. ankle. Procedure Exam performed in department. Interpretation Summary Deep veins of the lower extremities are bilaterally patent and compressible segmentally. There is no evidence of deep vein thrombosis on either side. Valvular competence appears intact within the proximal deep venous systems bilaterally. Acute superficial thrombophlebitis is noted in the right great saphenous vein from the right proximal thigh to the ankle. Acute superficial thrombophlebitis is noted in the left great saphenous vein from the left mid- thigh to the ankle. Acute superficial thrombophlebitis is noted in the right small saphenous vein from the right proximal calf to the ankle, which is a new development since a prior study on 09/24/2017. The left small saphenous vein is patent and compressible. Other than the presence of superficial thrombophlebitis in the right small saphenous vein, there have been no other significant changes since a prior study on 09/24/2017. Ordering Physician: Salvador Moreno Performed By: Rosalia Price RVT 10/29/174 Date Salvador Moreno MD CC: Salvador Moreno MD; Alec Arceo Date Dictated: 10/29/17 0938 Date Transcribed: 10/29/171643 Higher Education Administrator: Signed ALLERGIES ALLERGIES DATE TYPE / CODE NAME / CODE REACTION SEVERITY SOURCE 09/20/2018 Drug codeine/F006 Nausea Unknown [place] Allergy/[id number](S 990591([facility]) M) Hospital Repository 09/20/2018 Miscellaneous walnuts Anaphylaxis Unknown [place] Allergy/563946106(S [facility]) Hospital Repository ENCOUNTERS ENCOUNTERS ADMIT/DISCHARGE ACCOUNT ADMITTING ENCOUNTER LOCATION SOURCE NUMBER CLASS 09/20/2018/ [id number] Emergency [place] 8 5 [facility] ing:ED Repository 11/11/2017 [id number] Ambulatory [place] 2 [facility] ing:LAB Repository 10/29/2017 [id number] Ambulatory [place] 4 [facility] ing:CVS Repository PAYERS PAYERS ENCOUNTER GUARANTOR PAYER SUBSCRIBER SOURCE 09/20/2018 JUANIS Mac Primary JUANIS Mac [place] [id number] [facility] Insurance:MICHELA [facility]ANDOB[facility]: [id number] Hospital 004[address]Mdh: [phone] [id number] Repository [phone] (HP) Date:[id number] CK CMSP [id number] [place] [address] 16725ZW: 09/20/2018 Secondary PETE P [place] Insurance:ANTHEMPolic MCKEANDOB: Community y Number: [id number] Hospital [id number] Repository Date:[id number] [place] [address] 88446LG: 09/20/2018 Tertiary NOT GIVENUNK [place] Insurance:SELF PAY [facility] Number: Effective Repository Date:2018-09-20 11/11/2017 Juanis L Primary Pete P [place] [id number] [facility] Insurance:ANTHEMPolic MckeanD[facility] y Number: [id number] Hospital 35[address]Cmw: (087) [id number] Repository [phone] (HP) Date:2394-19-19[address] [place] [address] 39617DO: 11/11/2017 Secondary NOT GIVENUNK [place] Insurance:SELF PAY [facility] Number: Effective Repository Date:2017-11-11 10/29/2017 Juanis L Primary Pete P [place] [id number] [facility] Insurance:ANTHEMPolic MckeanDOB: [facility] y Number: [id number] Hospital [id number]: ([phone]) [id number] Repository [phone] (HP) Date:[id number] [address] [address] [place] [id number]: 10/29/2017 Secondary NOT GIVENUNK [place] Insurance:SELF PAY [facility] Number: Effective Repository Date:2017-10-19
--- OUTSIDE RECORDS SUMMARY | 2018-11-16 09:25 | XMS RPT_ITS ---
:1955 Author Organization [facility] Address [address] [place] [id number] Phone Care Team Providers Name Role Phone Mendez FINE, Derik Howard Reason for Visit Reason For Visit Description [...] Plan of Care Type Date Detail Appointment 10:00 AM Derik Simms MD, [address], [address], [place], [address], Appointment 11:00 AM Donn GOMEZ, [address], [address], [place], [address], Medications Medication Instructions Start Stop Generic Name NDC Provider Date Date TYLENOL CAPS as needed ACETAMINOPHEN [id number] Derik Wolfe CAPS Mendez FINE B-12 2500 MCG 1 tablet daily / CYANOCOBALAMIN [id number] Cara Monroy TABS 02 HEALTH UNIT SUPERVISOR CENTRUM SILVER 1 tablet daily / MULTIPLE [id number] Cara Monroy TABS 02 VITAMINS-MINERAL HEALTH UNIT SUPERVISOR S FENOFIBRATE 1 capsule daily / FENOFIBRATE [id number] Cara Monroy MICRONIZED 200 02 MICRONIZED HEALTH UNIT SUPERVISOR MG CAPS NORTRIPTYLINE 1 capsule daily / NORTRIPTYLINE [id number] Cara Monroy HCL 25 MG CAPS 02 HCL HEALTH UNIT SUPERVISOR LISINOPRIL-HYDRO 1 tablet daily / LISINOPRIL-HYDRO 16176683638 Cara Monroy CHLOROTHIAZIDE 02 CHLOROTHIAZIDE HEALTH UNIT SUPERVISOR 10-12.5 MG TABS METFORMIN HCL 1 tablet twice / METFORMIN HCL [id number] Cara Monroy 850 MG TABS daily 02 HEALTH UNIT SUPERVISOR ELIQUIS 2.5 MG 1 tablet twice / APIXABAN 39129733467 Cara Monroy TABS daily 02 HEALTH UNIT SUPERVISOR CITALOPRAM 1 tablet daily / CITALOPRAM 74281997111 Cara Monroy HYDROBROMIDE 40 02 HYDROBROMIDE HEALTH UNIT SUPERVISOR MG TABS GLIMEPIRIDE 2 MG 1 tablet daily / GLIMEPIRIDE 47396099173 Cara Monroy TABS 02 HEALTH UNIT SUPERVISOR METOPROLOL 2 tablets at 2 / METOPROLOL 37325803621 Cara Monroy TARTRATE 50 MG am morning and 02 TARTRATE HEALTH UNIT SUPERVISOR TABS 1 tablet in the afternoon 1pm [...] Provider Description WALNUTS Critical Active Cara Monroy HEALTH UNIT SUPERVISOR WOOL Critical Active Cara Monroy HEALTH UNIT SUPERVISOR LATEX Critical Active Cara Monroy HEALTH UNIT SUPERVISOR CODEINE Critical Active Cara Monroy PHOSPHATE HEALTH UNIT SUPERVISOR Social History No information available. Vital Signs Date Name Value Unit Description BMI (Body Mass 29.16 kg/m2 Body Mass Index Index) [Ratio] Preliminary vital sign data, not yet signed by the author as of BP Diastolic 85 mm[Hg] blood pressure, diastolic Preliminary vital sign data, not yet signed by the author as of BP Systolic 139 mm[Hg] blood pressure, systolic Preliminary vital sign data, not yet signed by the author as of Heart Rate 65 /min pulse rate E&M Preliminary vital sign [...] Office Visit: Postop - subsequent visit, Rm: 5 MEDS REVIEW Done Documentation of current medications [...] within normal parameters - no follow-up required [facility]-[id number] Patient Encounter Medications Administered No information available. [...]
--- OUTSIDE RECORDS SUMMARY | 2018-11-16 09:25 | XMS RPT_ITS ---
:1955 Author Organization [facility] Address [address] [place] [id number] Phone Care Team Providers Name Role Phone Mednez FINE, Derik Howard Reason for Visit Reason For Visit Description Start Date Postop - 1st visit Preliminary reason for visit data, not yet signed by the author as of left hip post Left hip scope with gluteus medius and minimus repair; allograft augmentation and 20 x 18 x 3.6 mm thickness; Trochanteric bursectomy; Iliotibial band resection on 04/13/2018 Preliminary reason for visit data, not yet signed by the author as of Chief Complaint Chief Complaint Description Start Date left hip post Left hip scope with gluteus medius and minimus repair; allograft augmentation and 20 x 18 x 3.6 mm thickness; Trochanteric bursectomy; Iliotibial band resection on 04/13/2018 Preliminary chief complaint data, not yet signed by the author as of Instructions Instruction Description Start Date Completed Plan of Care Type Date Detail Appointment 09:00 AM Derik Simms MD, [address], [address], [place], [address], Appointment 09:45 AM Marguerite Moncada PT, [address], [place], [address], Medications Medication Instructions Start Stop Generic Name NDC Provider Date Date PERCOCET 5-325 as needed as / OXYCODONE-ACETAM [id number] Derik Lezama MG TABS directed 03 STEPHANIE Simms MD NAPROSYN 500 MG Take 1 tablet / NAPROXEN [id number] Donn A TABS by mouth once a 11 Katheryn PAC day B-12 2500 MCG 1 tablet daily / CYANOCOBALAMIN 64336487971 Cara Monroy TABS 02 CULTURE MANAGER CENTRUM SILVER 1 tablet daily / MULTIPLE 89397538180 Cara Monroy TABS 02 VITAMINS-MINERAL CULTURE MANAGER S FENOFIBRATE 1 capsule daily / FENOFIBRATE 90055830698 Cara Monroy MICRONIZED 200 02 MICRONIZED CULTURE MANAGER MG CAPS NORTRIPTYLINE 1 capsule daily / NORTRIPTYLINE 71560862873 Cara Monroy HCL 25 MG CAPS 02 HCL CULTURE MANAGER LISINOPRIL-HYDRO 1 tablet daily / LISINOPRIL-HYDRO 41093344704 Cara Monroy CHLOROTHIAZIDE 02 CHLOROTHIAZIDE CULTURE MANAGER 10-12.5 MG TABS METFORMIN HCL 1 tablet twice / METFORMIN HCL 33051895400 Cara Monroy 850 MG TABS daily 02 CULTURE MANAGER ELIQUIS 2.5 MG 1 tablet twice / APIXABAN 83546715424 Cara Monroy TABS daily 02 CULTURE MANAGER CITALOPRAM 1 tablet daily / CITALOPRAM 47872393638 Cara Monroy HYDROBROMIDE 40 02 HYDROBROMIDE CULTURE MANAGER MG TABS GLIMEPIRIDE 2 MG 1 tablet daily / GLIMEPIRIDE 21714835322 Cara Monroy TABS 02 CULTURE MANAGER METOPROLOL 2 tablets at 2 / METOPROLOL 28743755080 Cara Monroy TARTRATE 50 MG am morning and 02 TARTRATE CULTURE MANAGER TABS 1 tablet in the afternoon 1pm Conditions or Problems Problem Name Problem Onset Status Entry Provider Comment Standard Annotate Code Date Date Description Strain of S76.012D Active Derik Lezama Strain of High muscle fascia (ICD-10-C / Franki muscle, grade and tendon of M) fascia and glut med left hip tendon of tear subsequent left hip, encounter subsequent encounter Trochanteric M70.62 Active Derik Lezama Trochanteric bursitis left (ICD-10-C / Mendez bursitis, hip M) left hip Allergies, Adverse Reactions, Alerts Allergy Name Reaction Start Date Severity Status Provider Description WALNUTS Critical Active Cara Monroy CULTURE MANAGER WOOL Critical Active Cara Monroy CULTURE MANAGER LATEX Critical Active Cara Monroy CULTURE MANAGER CODEINE Critical Active Cara Monroy PHOSPHATE CULTURE MANAGER Social History No information available. Vital Signs Date Name Value Unit Description BMI (Body Mass 29.16 kg/m2 Body Mass Index Index) [Ratio] Preliminary vital sign data, not yet signed by the author as of BP Diastolic 79 mm[Hg] blood pressure, diastolic Preliminary vital sign data, not yet signed by the author as of BP Systolic 117 mm[Hg] blood pressure, systolic Preliminary vital sign data, not yet signed by the author as of Heart Rate 63 /min pulse rate E&M Preliminary vital sign [...] Range Flag Description Office Visit: Postop - 1st visit, Rm: 7 MEDS REVIEW Done Documentation of current medications (procedure) Preliminary observation data, not yet signed by the author as of Preliminary observation data, not yet signed by the author as of Clinical Summary: HMSPatient[facility] GOP account number Procedures Code Procedure Name Date Entry Date CPT-34332 Physical Therapy CPT-27156 Physical Therapy G8730 Pain assessment documented as positive - follow-up documented G8427 Current medications documented 4004F-8P Tobacco screening or cessation counseling not performed - unknown reason G8419 BMI outside of normal parameters - no follow-up plan/reason not given G8783 Blood pressure within normal parameters - no follow-up required [facility]-[id number] Patient Encounter Medications Administered No information available. [...]
== END 2018-09-20 17:12 | disposition home or self-care (01) ==
PROVIDERS: Emergency Provider Emergency Medicine; Family Provider Family Medicine; PCP Family Medicine
DX: S83.91XA Sprain of unspecified site of right knee, initial encounter (principal); X50.1XXA Overexertion from prolonged static or awkward postures, initial encounter; Y93.89 Activity, other specified; Y92.512 Supermarket, store or market as the place of occurrence of the external cause; Y99.0 Civilian activity done for income or pay; I10 Essential (primary) hypertension; E11.9 Type 2 diabetes mellitus without complications; Z79.84 Long term (current) use of oral hypoglycemic drugs; Z79.01 Long term (current) use of anticoagulants; Z79.899 Other long term (current) drug therapy; Z87.891 Personal history of nicotine dependence
CPT/HCPCS: 99283

== ENCOUNTER → 2020-06-07 09:05 | Outpatient (CLI) | payer OTHER, SELFPAY ==
--- NOTE | 2020-06-07 09:21 | US_ITS ---
STUDY: ABDOMINAL ULTRASOUND REASON FOR EXAM: Female, 64 years old. INTERMITTENT EPIGASTRIC PAIN, NAUSEA, BLOATING X 3 WEEKS TECHNIQUE: Transabdominal ultrasound was performed with real-time and static pablo scale imaging. TECHNICAL QUALITY: Limited. Examination limited due to a combination of factors including obesity and bowel gas. COMPARISON: None. FINDINGS: Liver: The liver measures 17.7 cm. There is increased echogenicity consistent with fatty infiltration. The bile ducts are within normal limits. There is hepatic color flow. The direction of portal flow is hepatopetal. There is no demonstrated mass lesion. Portal vein measurement: Gallbladder: Normal distended gallbladder. The gallbladder wall is mildly thickened and measures 3.6 mm. There is a negative sonographic Wright''s sign. There is no pericholecystic fluid. There are multiple echogenic structures within the gallbladder, consistent with multiple gallstones. Common Bile Duct (C.B.D.): The common bile duct measures 3.6 mm. Pancreas: Normal size of the head, body of the pancreas. The tail portion is obscured uterine bowel gas. There is normal echogenicity of the pancreas. There is no demonstrated pancreatic mass or cyst. Spleen: Normal size of the spleen. The spleen measures 9.9 cm x 3.9 cm x 4 cm. Right Kidney: Normal size of the right kidney. The right kidney measures 10.9 cm x 5 cm x 4.8 cm. Normal renal cortex. The right cortex measures 1.1 cm. There is no demonstrated renal mass or cyst. There is no right hydronephrosis. Left Kidney: Normal size of the left kidney. The left kidney measures 9.7 cm x 4.3 cm x 5.4 cm. Normal renal cortex. The left cortex measures 1.4 cm. There is no demonstrated renal mass or cyst. There is no left hydronephrosis. Aorta: Unremarkable I.V.C.: The IVC is patent. There is no ascites. US/Abdomen Complete IMPRESSION: Fatty infiltration of the liver. Multiple gallstones and mild thickening of the gallbladder wall. Electronically Signed: Marvin Hanley, at 13:18 EDT , Service support ,
== END ==
PROVIDERS: PCP Family Medicine; Referring Provider Family Medicine; Visit Provider Family Medicine
DX: R10.13 Epigastric pain (principal); R11.0 Nausea
CPT/HCPCS: 76700

== ENCOUNTER 2020-06-20 05:24 | Day surgery (SDC) | payer OTHER, SELFPAY ==
[2020-06-12 13:14] VITALS: BMI 33.4
--- NOTE | 2020-06-13 14:52 | EKG12_ITS ---
Test Reason : PREOP Blood Pressure : / mmHG Vent. Rate : 076 BPM Atrial Rate : 076 BPM P-R Int : 206 ms QRS Dur : 084 ms QT Int : 420 ms P-R-T Axes : 067 004 049 degrees QTc Int : 472 ms Sinus rhythm with occasional Premature ventricular complexes Otherwise normal ECG Confirmed by CHRISTOPHER FINE, DALTON ([id number]), commissioning editor DANUTA PICHARDO ([id number]) on 06/17/2020 9:31:01 AM Referred By: uGs Cruz Confirmed By:GWEN WHITE MD
[2020-06-13 15:51] LABS: Hematocrit 48.8 % (37-47); Hemoglobin 15.8 g/dL (12.0-15.0); Mean Corp Hgb Conc 32.4 g/dL (32-36); Mean Corpuscular Hgb 29.6 pg (27.0-32.0); Mean Corpuscular Volume 91.4 fL (81-99); Platelet Count 274 K/mm3 (150-450); RBC Distribution Width CV 13.9 % (11.6-14.6); RBC Distribution Width SD 46.8 fl (35.1-43.9); Red Blood Count 5.34 M/mm3 (4.2-5.4); White Blood Count 8.3 K/mm3 (4.4-11.0)
[2020-06-13 16:13] LABS: Hemoglobin A1c 10.6 % (3.8-5.6)
[2020-06-13 16:27] LABS: Anion Gap 5 (5-15); BUN 15 mg/dL (7-18); BUN/Creat Ratio 13.5 RATIO (10-20); Calcium,Total 8.7 mg/dL (8.5-10.1); Chloride 107 mmol/L (98-107); Creatinine, Serum 1.11 mg/dL (0.55-1.02); EST Glomerular Filtration Rate 53 mL/min (>60); Est Glom Filt Rate - Afr Amer 64 mL/min (>60); Glucose 273 mg/dL (74-106); Potassium 4.2 mmol/L (3.5-5.1); Sodium Level 137 mmol/L (136-145)
[2020-06-20] VITALS (12 sets, daily range): BP systolic 127–162; BP diastolic 61–95; PULSE 68–77; RESP 16–196; TEMP 36.3–36.9; O2SAT 92–97; BMI 28.5
[2020-06-20 05:56] LABS: Bedside Glucose 219 mg/dL (70-110)
[2020-06-20] MEDS: Lactated Ringers 1,000 ML 100 ML IV ×2 (06:14→06:18)
--- NOTE | 2020-06-20 07:15 | GALL_PTH ---
PATIENT: KAVITA ADAME LOC: [facility] U#:[id number] AGE/SX: 64/F ROOM: RE06/20/[address]: Dr. Gus Cruz MD : 1955 BED: DIS: 06/20/2020 SPEC #: [id number] RECD: 06/20/20 10:28 STATUS: ENRICO REAugie #: [id number] JEWEL: 06/20/20 07:[address]: Gus Cruz DEPT: SURGICAL PATHOLOGY RECD BY: Radha Campbell ENTERED: 06/20/20 11:49 SP TYPE: SELWYN ZHU DR: Dr. Alec Arceo MD Tissues: Gallbladder, NOS Procedures: Surgery Specimen Level III HEADER OPERATION: Robotic cholecystectomy PRE-OP DIAGNOSIS: Epigastric abdominal pain; calculus of gallbladder with acute and chronic cholecystitis without obstruction TISSUE SUBMITTED: Gallbladder MICROSCOPIC DIAGNOSIS Gallbladder, cholecystectomy: Chronic cholecystitis with Rokitansky-Aschoff sinuses and cholelithiasis. AM:paresh 06/21/20 MICROSCOPIC DESCRIPTION Slides are reviewed. GROSS DESCRIPTION Received is one container labeled with the patient's name and designated gallbladder. The specimen consists of a gallbladder measuring 9 cm in length and up to 3 cm in diameter. The external surface is pink-jackson, smooth and glistening for the most part. Focally it is granular, hemorrhagic and contains cautery artifact. The gallbladder contains hemorrhagic, mucoid bile and multiple, multifaceted brownish-black stones measuring in aggregate 4.5 x 3.5 x 1.5 cm and 1 to 1.2 cm in greatest dimension. The mucosa is bile-stained and without any mass lesions. The gallbladder wall measures up to 0.4 cm in thickness. Cellular Equipment Repairer sections from the gallbladder and the cystic duct are submitted in one cassette. / SJ:paresh 06/20/20 TC:3 CPT: 37793
[2020-06-20] MEDS: Cefazolin 2 GM in 0.9% Normal Saline 100 ML IV (07:30)
[2020-06-20] MEDS: Bupivacaine Mpf 0.5% 30 ML VIAL (07:41)
--- NOTE | 2020-06-20 08:43 | PCM.DC.GB ---
Discharge Diet: Light diet - advance as tolerated Discharge Activity: May Not Drive - for 2-3 days or while taking narcotic pain medications., - - Do not drive, work heavy equipment or sign legal documents for 24 hours. May shower in (days): 1 - with the bandage in place. Additional Activity Instructions:: Pain medication may cause nausea. You should typically eat light foods as you take your pain medications. Pain medication may also cause constipation. If this is a problem for you, please discuss with your doctor. Call your doctor if your incision/area has: Continuous Slow Oozing, Sudden Increased Bleeding, Increased Pain/ Swelling, Increased Redness, Foul Smelling Discharge Call your doctor if you observe: Fever of 101 or Higher Suture Line Care: Avoid Pulling/Pushing, Avoid Pinching/Bending Additional Dressing/Incision Instructions:: Leave operative bandaids on for 2 days. When you remove dressing, leave Steri-Strips on until your follow-up appointment, or until the Steri-Strips fall off on their own. Allergies/Adverse Reactions: Allergies codeine Adverse Reaction (Verified 06/20/20 05:47) Nausea walnuts Allergy (Uncoded 06/20/20 05:47) Anaphylaxis Medications to take at Discharge Citalopram [Celexa] 40 mg PO DAILY 02/06/16 Fenofibrate,Micronized [Lofibra] 200 mg PO DAILY 02/06/16 Lisinopril/Hydrochlorothiazide [Zestoretic 08/05.5 Tablet] 1 tab PO DAILY 02/06/16 Metoprolol Tartrate 50 mg PO BID 02/06/16 metFORMIN HCl [Glucophage] 850 mg PO BIDCM 02/06/16 Albuterol Sulfate [Ventolin Hfa] 1 - 2 puff IH Q4H PRN PRN 09/20/18 Apixaban [Eliquis] 2.5 mg PO BID 09/20/18 Glimepiride [Amaryl] 2 mg PO DAILY 09/20/18 Nortriptyline HCl [Pamelor] 25 mg PO QHS 09/20/18 Cyanocobalamin [Vitamin B12] 500 mcg PO QHS 06/12/20 atorvastatin 40 mg tablet 40 mg PO DAILY 06/12/20 Oxycodone HCl/Acetaminophen [Percocet 5/325] 1 - 2 tablet PO Q4H PRN PRN 6 Days #30 tablet 06/20/20 The following prescriptions were given: Oxycodone HCl/Acetaminophen [Percocet 5/325] 1 - 2 tablet PO Q4H PRN PRN 6 Days #30 tablet PRN Reason: Pain Transmission Status: Received by [facility]acy [id number] Primary Care Physician: Alec Arceo MD [Primary Care Provider] - Test Results: Test results from this visit will be discussed in further detail at your follow-up appointment, if applicable. Please Follow Up With: Gus Cruz MD - Please call [phone] to schedule an appointment. When: 7 days after your surgery.
--- NOTE | 2020-06-20 10:00 | HP_ITS ---
Intake Vital Signs 06/12/20 BMI 33.4 06/12/20 Height 5 ft 6 in 06/12/20 Weight: 203 lb 06/12/20 BMI 32.8 06/12/20 BP 132/82 H 06/12/20 Blood Pressure Location Rt brachial 06/12/20 Position Sitting 06/12/20 Respiration 16 06/12/20 Temp 97.2 F L 06/12/20 Temp Source Temporal Intake Visit Reasons: Gallstones Lead Oracle Developer Required: No Is patient in pain?: No Allergies codeine Adverse Reaction (Verified 06/12/20 13:12) Nausea walnuts Allergy (Uncoded 06/12/20 13:12) Anaphylaxis Medications Citalopram [Celexa] 40 mg PO DAILY 02/06/16 [History Confirmed 06/12/20] Fenofibrate,Micronized [Lofibra] 200 mg PO DAILY 02/06/16 [History Confirmed 06/12/20] Lisinopril/Hydrochlorothiazide [Zestoretic 08/05.5 Tablet] 1 tab PO DAILY 02/06/16 [History Confirmed 06/12/20] Metoprolol Tartrate 50 mg PO BID 02/06/16 [History Confirmed 06/12/20] metFORMIN HCl [Glucophage] 850 mg PO BIDCM 02/06/16 [History Confirmed 06/12/20] Albuterol Sulfate [Ventolin Hfa] 1 - 2 puff IH Q4H PRN PRN 09/20/18 [History Confirmed 06/12/20] Apixaban [Eliquis] 2.5 mg PO BID 09/20/18 [History Confirmed 06/12/20] Glimepiride [Amaryl] 2 mg PO DAILY 09/20/18 [History Confirmed 06/12/20] Nortriptyline HCl [Pamelor] 25 mg PO DAILY 09/20/18 [History Confirmed 06/12/20] atorvastatin 40 mg tablet 40 mg PO DAILY 06/12/20 [History Confirmed 06/12/20] PFSH Medical History DVT (deep venous thrombosis) (Acute) Diabetes (Acute) Factor V Leiden mutation (Acute) High cholesterol (Acute) HTN (hypertension) (Chronic) Surgical History S/P rotator cuff repair (Acute) Status post total hip replacement, left (Acute) Family History Mother CVA (cerebral vascular accident) Hypertension Heart disease Father Heart disease Grandmother CVA (cerebral vascular accident) Social History (Updated 06/12/20 @ 13:[address] Gus Cruz MD) Smoking Status: Current every day smoker alcohol intake: current alcohol intake frequency: holidays/special occasions only HPI HPI HPI: KAVITA ADAME, is a 64 F who presents to the office today for HPI HPI Surgical H&P: Yes HPI: KAVITA ADAME, is a 64 F who presents to the office today for Evaluation of epigastric abdominal pain. Over the last month the patient has been having epigastric discomfort. It has been associated with foods. She has had no nausea or vomiting she has had some looser stools. She has had no pain in her back. She is also been complaining of just a generalized stomachache at times. Gallbladder ultrasound was completed at [facility] on 06/07/2020. This showed a gallbladder wall mildly thickened at 3.6 mm. There was a negative sonographic Wright sign. There was no pericholecystic fluid. There were multiple gallstones present. The common bile duct was 3.6 mm. ROS General General: Yes fatigue; no weight change, appetite, colon cancer, breast cancer or weakness HEENT HEENT: No difficulty swallowing, eye injury, eye surgery, swollen glands or hoarseness Endo Endocrine: Yes diabetes mellitus; no thyroid disease, thyroid cancer, Hair loss, heat intolerance or cold intolerance Skin Skin: No rash or changing moles Breast Breast: No left breast lump, right breast lump, nipple discharge, breast pain, abnormal mammogram, abnormal US or breast enlargement Musc Musculoskeletal: Yes arthritis; no back problems, rheumatoid arthritis, gout or joint pain Cardio Cardiovascular: Yes atrial fibrillation and high blood pressure; no murmur, pacemaker, heart disease, heart attack, heart stent, palpitations, shortness of breat with exertion or chest pain Psych Psychiatric: No depression, anxiety or hearing voices Resp Respiratory: No shortness of breath, No sleep apnea, No cough, No COPD, Yes asthma, No emphysema, No wheezing Gastro Gastrointestinal: Yes abdominal pain, Yes nausea or vomiting, Yes diarrhea, No constipation, No blood in stool, Yes acid reflux, No hemorrhoids, No ulcers, Yes gallbladder problem, No black,tarry stools Markie Hematologic: Yes blood thinners, Yes blood disorders, No bleeding, No anemia, Yes blood clots Neuro Neurologic: No system reviewed and no additional complaints, except as docu, No as per HPI, No abnormal walking, No abnormal hearing, No abnormal movements, No abnormal speech, No behavioral changes, No burning sensations, No confusion, No seizure-like activity, No unsteadiness, No dizziness, No localized weakness, No frequent falls, No headache(s), No lack of coordination, No loss of vision, No memory loss, No numbness, No other visual disturbances, No radiating pain, No restless legs, No sensory deficit, No fainting, No tingling, No tremor(s), No weakness, No other Exam Const General: no acute distress, well developed, well hydrated Orientation: oriented to person, oriented to place, oriented to time [facility] Head: normocephalic, atraumatic Ears: external ears normal Mouth: moist mucous membranes Eyes Sclera: sclerae normal Pupils: normal by confrontation Neck Neck: no lymphadenopathy noted Neck mass: No Thyroid: thyroid normal, symmetrical Chest Chest palpation & inspection: normal inspection of the chest Breast Palpation: No nipple discharge Resp Effort & Inspection: normal respiratory effort Auscultation: clear to auscultation bilaterally Percussion: percussion normal Cardio Rate: regular rate Rhythm: regular rhythm Heart Sounds: no murmurs GI Palpation: soft, no hepatosplenomegaly, no masses, tender Auscultation: normal bowel sounds Rectal Exam: other Other: Rectal exam deferred. Extrem General: normal to inspection, no clubbing, cyanosis or edema Assessment & Plan Problems 1. Epigastric abdominal pain R10.13 2. Calculus of gallbladder with acute on chronic cholecystitis without obstruction K80.12 Plan Reviewed the anatomy with the patient and discussed the procedure: laparoscopic cholecystectomy with possible cholangiograms, possible open. Review risks including but not limited to bleeding, infection, hernia, bile leak, retained gallstones requiring another procedure ERCP- Endoscopic Retrograde Cholangiopancreatography, injury to another organ (bile ducts, common bile duct, small bowel, etc.) and conversion to an open procedure. All questions were answered. Coding Level of Care Code Off vis,new,level 3 Diagnoses Epigastric abdominal pain R10.13 Calculus of gallbladder with acute on chronic cholecystitis without obstruction K80.12 ??Cholelithiasis location: gallbladder ??Cholecystitis acuity: acute and chronic COVID (Procedure Consent) Procedure Criteria Procedure Criteria: Yes Elective The surgeon/proceduralist and patient have discussed in detail the risk of exposure to and/or potential harm posed by the COVID-19 virus with having a surgery/procedure at this time versus the risk of? delaying the surgery/procedure. It is not possible to know either the risk of delaying the surgery or procedure or chance of getting an infection with perfect accuracy, but a joint decision was made between the patient and the surgeon/proceduralist ?to proceed at this time with the scheduled surgery/procedure as indicated on the consent form. I have re-examined the patient. There are no clinical changes since date of exam.
[2020-06-20] MEDS: oxyCODONE 5 MG Tablet PO (11:22)
[2020-06-20] MEDS: Acetaminophen 325 MG Tablet PO (11:22)
--- NOTE | 2020-06-24 07:18 | OP.PCM_ITS ---
Problem List (1) Calculus of gallbladder Status: Acute Qualifiers: Cholecystitis presence: without cholecystitis Biliary obstruction: without biliary obstruction Qualified Code(s): K80.20 - Calculus of gallbladder without cholecystitis without obstruction Report of Operation Date of Procedure: 06/20/20 Pre-Operative Diagnosis: 1. Calculus of the gallbladder. Epigastric abdominal pain Post-Operative Diagnosis: Same Surgery/Procedure Performed:: Robotically assisted laparoscopic cholecystectomy Anesthesiologist: Remberto Avalos Estimated Blood Loss (mL): < 25 cc Description of Procedure: Patient was brought into the operating room. Placed in supine position. Under excellent general trach intubation the bed was placed in the head up position and rotated to the left the abdomen was sterilely prepped and draped in the usual fashion. Local was injected above the umbilicus dissection was carried down to the fascia the fascia was grasped with a Ciro varies needle was placed inside the abdomen the abdomen was insufflated to 15 torr a 10/12 trocar was placed without difficulty. It was flank with 2 #8 trochars approximately 10 cm from the central trocar. These were placed under direct visualization without injury to underlying structures. A #5 trocar was placed further laterally on the right side. This was placed under direct visualization without injury to underlying structures. The robot was brought in and docked appropriately. Fundus of the gallbladder was grasped and retracted in a cephalad direction. I then went to the docking station gallbladder was retracted in a cephalad direction I dissected out the cystic duct and cystic artery and posterior to this as well along the liver edge. Once I have the anatomy defined hemoclips were placed proximally and distally on the duct and the duct was ligated in similar fashion hemoclips were placed proximally and distally on the artery and the artery was ligated. I deliver the gallbladder from the gallbladder bed with use of electrocautery. I had no spillage of bile. I inspected the liver edge good pneumostasis was noted. The robot was undocked. The gallbladder was placed in a bag and brought back through the umbilical port. Trochars were removed under direct visua lization hemostasis was noted. Fascia the umbilical port was stishl-et-qzldn stitch of 0 Vicryl. Skin incisions were closed with subcuticular stitches of 4- 0 Monocryl. Patient tolerated the procedure well. - Admit VTE Documentation VTE Present on Admission: No VTE Mechan Device Prophylaxis: SCD's VTE Pharm Prophylaxis ordered?: No Reason prophylaxis not ordered:: Treatment Not Indicated [id number]: [id number] Laparoscopic cholecystectomy
== END 2020-06-20 12:07 | disposition home or self-care (01) ==
LOC: SDC 05:24 → AC 05:26
PROVIDERS: Anesthesiology; PCP Family Medicine; Referring Provider Surgery; Visit Provider Surgery
PROC: 0FT44ZZ Resection of Gallbladder, Percutaneous Endoscopic Approach (ICD-10-PCS; CPT 47562; principal; 2020-06-20 06:55)
DX: K80.12 Calculus of gallbladder with acute and chronic cholecystitis without obstruction (principal); K82.8 Other specified diseases of gallbladder; I10 Essential (primary) hypertension; I48.91 Unspecified atrial fibrillation; E11.9 Type 2 diabetes mellitus without complications; E78.00 Pure hypercholesterolemia, unspecified; D68.51 Activated protein C resistance; F17.200 Nicotine dependence, unspecified, uncomplicated; Z86.718 Personal history of other venous thrombosis and embolism; Z79.01 Long term (current) use of anticoagulants; Z79.84 Long term (current) use of oral hypoglycemic drugs; Z79.899 Other long term (current) drug therapy; Z20.828 Contact with and (suspected) exposure to other viral communicable diseases
CPT/HCPCS: 00790; 47562; S2900; 36415; 80048; 82962; 83036; 85027; 87635; 88304; 93005; 94799; C9803; J7120; J2405; U0003

== ENCOUNTER → 2021-01-02 14:05 | Outpatient (CLI) | payer OTHER, SELFPAY ==
[2020-06-20 05:57] VITALS: BMI 28.5
[2021-01-02 15:52] LABS: International Normalized Ratio 1.3; Prothrombin Time (Protime)PT. 15.6 SECONDS (11.7-14.9)
== END ==
PROVIDERS: PCP Family Medicine; Visit Provider Family Medicine
DX: E72.11 Homocystinuria (principal); D68.59 Other primary thrombophilia
CPT/HCPCS: 36415; 85610

== ENCOUNTER → 2021-01-06 13:09 | Outpatient (CLI) | payer OTHER, SELFPAY ==
[2020-06-20 05:57] VITALS: BMI 28.5
[2021-01-06 15:28] LABS: International Normalized Ratio 1.8; Prothrombin Time (Protime)PT. 20.2 SECONDS (11.7-14.9)
== END ==
PROVIDERS: PCP Family Medicine; Visit Provider Family Medicine
DX: E72.11 Homocystinuria (principal); D68.59 Other primary thrombophilia
CPT/HCPCS: 36415; 85610

== ENCOUNTER 2022-06-09 07:45 | Day surgery (SDC) | payer MEDICARE, SELFPAY ==
[2022-06-09] VITALS (8 sets, daily range): BP systolic 112–142; BP diastolic 57–97; PULSE 62–65; RESP 16; TEMP 36.2–36.6; O2SAT 93–98; BMI 29.5
--- NOTE | 2022-06-09 | IMM_PTH ---
PATIENT: KAVITA ADAME LOC: EN U#:[id number] AGE/SX: 66/F ROOM: RE06/09/[address]: Dr. João Pantoja MD : 1955 BED: DIS: 06/09/2022 SPEC #: [id number] RECD: 06/10/22 06:25 STATUS: ENRICO REAugie #: [id number] JEWEL: 06/09/22 00:[address]: João Pantoja DEPT: IMMUNOHISTOCHEMISTRY RECD BY: Radha Campbell ENTERED: 06/10/22 06:26 SP TYPE: IMMUNO OTHR DR: Dr. Alec Arceo MD Tissues: COLON BIOPSY Procedures: H Pylori (initial) PHYSICIAN & [place] [id number] SPECIMEN INFORMATION: Tissue Source: A. Antrum biopsy Clinical Info: Diarrhea Specimen Number: [id number] CPT code: 99908 METHODOLOGY: Deparaffinized sections of prefer/formalin-fixed tissue or PAP/DQ stained slides are incubated with monoclonal/polyclonal antibodies/oligonucleotide probes. Localization is made via biotin free immunoperoxidase method. Appropriate controls are performed and reacted as expected. Results on target cell population are indicated in the following table: RESULTS: ANTIBODY / CLONE RESULT Block A H Pylori (polyclonal) negative These tests were developed and their performance characteristics determined by [facility]. They may not have been cleared or approved by the U.S. Food and Drug Administration. The FDA has determined that such clearance or approval is not necessary. The above immunohistochemical/dualISH markers are ordered and reviewed by the Pathologist. INTERPRETATION: A. Antrum biopsy: Negative for Helicobacter pylori organisms. SJ:cortez 06/10/22
[2022-06-09 08:11] LABS: INR Fingerstick 1.3; Prothrombin Time Fingerstick 16.4 SEC (11.7-14.9)
[2022-06-09] MEDS: Lactated Ringers 1,000 ML 15 ML IV (08:35)
--- NOTE | 2022-06-09 09:00 | EGD_PTH ---
PATIENT: KAVITA ADAME LOC: EN U#:[id number] AGE/SX: 66/F ROOM: RE06/09/[address]: Dr. João Pantoja MD : 1955 BED: DIS: 06/09/2022 SPEC #: [id number] RECD: 06/09/22 11:29 STATUS: ENRICO REAugie #: [id number] JEWEL: 06/09/22 09:[address]: João Pantoja DEPT: SURGICAL PATHOLOGY RECD BY: Abiola Ghotra ENTERED: 06/09/22 11:44 SP TYPE: EGD BIOPSY OT DR: Dr. Alec Arceo MD Tissues: A - Gastric mucous membrane B - COLON BIOPSY Procedures: Surgery Specimen Level IV HEADER OPERATION: Colonoscopy with biopsy, [place] with biopsy [place] PRE-OP DIAGNOSIS: Diarrhea TISSUE SUBMITTED: A. Antrum biopsy, B. Random colon biopsy MICROSCOPIC DIAGNOSIS A. Antrum biopsy: Mild gastritis. See microscopic description and comment. B. Random colon biopsy: Fragments of colonic mucosa, no pathologic diagnosis. 06/10/22 COMMENT A. The results of immunohistochemistry for Helicobacter pylori will be reported separately ([id number]). MICROSCOPIC DESCRIPTION Slides are reviewed. The specimen shows fragments of gastric mucosa with chronic inflammatory cell infiltrates in the lamina propria consisting of lymphocytes and plasma cells, consistent with mild chronic gastritis. GROSS DESCRIPTION A. Received is one container labeled with the patient name and designated antrum. The specimen consists of one irregular fragment of light jackson soft tissue that measures 0.4 x 0.4 x 0.1 cm. The specimen is totally submitted in one cassette. B. Received is one container labeled with the patient name and designated random colon. The specimen consists of multiple irregular fragments of light jackson soft tissue that in aggregate measure 1.5 x 0.5 x 0.1 cm. The specimen is totally submitted in one cassette. /MIRNA:cortez 06/09/22 TC:3 [facility]: [id number] x2
--- NOTE | 2022-06-09 09:22 | HP.PCM_ITS ---
History and Physical Date of Admission: 06/09/22 Intake Vital Signs ? 06/20/2005:57 05/18/2209:03 Height 5 ft 7 in 5 ft 6 in Weight: ? 189 lb BMI ? 30.4 BP ? 140/83 H Blood Pressure Location ? Rt brachial Position ? Sitting Respiration ? 16 Pulse ? 62 Pulse Source ? Monitor Temp ? 97.2 F L Temp Source ? Temporal Pulse Oximetry (%) ? 96 Oxygen Delivery Method ? 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 Required: No Is patient in pain?: No Allergies codeine Adverse Reaction (Verified 05/18/22 09:04) Nauseawalnuts Allergy (Uncoded 05/18/22 09:04) Anaphylaxis Medications citalopram 40 mg tablet 40 mg PO DAILY 02/06/16 [History Confirmed 05/18/22] fenofibrate micronized 200 mg capsule 200 mg PO DAILY 02/06/16 [History Confirmed 05/18/22] lisinopril 10 mg-hydrochlorothiazide 12.5 mg tablet 1 tab PO DAILY 02/06/16 [History Confirmed 05/18/22] metformin 850 mg tablet 850 mg PO BIDCM 02/06/16 [History Confirmed 05/18/22] metoprolol tartrate 75 mg tablet 50 mg PO BID 02/06/16 [History Confirmed 05/18/22] albuterol sulfate 90 mcg/actuation aerosol inhaler 1 - 2 puff IH Q4H PRN PRN Wheezing 09/20/18 [History Confirmed 05/18/22] apixaban 5 mg tablet 2.5 mg PO BID 09/20/18 [History Confirmed 05/18/22] glimepiride 2 mg tablet 2 mg PO DAILY 09/20/18 [History Confirmed 05/18/22] nortriptyline 25 mg capsule 25 mg PO QHS 09/20/18 [History Confirmed 05/18/22] atorvastatin 40 mg tablet 40 mg PO DAILY 06/12/20 [History Confirmed 05/18/22] cyanocobalamin (vitamin B-12) 500 mcg tablet 500 mcg PO QHS 06/12/20 [History Confirmed 05/18/22] omeprazole 40 mg capsule,delayed release 40 mg PO DAILY #30 caps 05/18/22 [Rx Confirmed 05/18/22] PFSH Medical History?(Updated 05/18/22 @ 09:[address] João Pantoja MD) Diabetes DVT (deep venous thrombosis) Factor V Leiden mutation High cholesterol HTN (hypertension) Surgical History? S/P laparoscopic cholecystectomy S/P rotator cuff repair Status post total hip replacement, left Family History? Mother CVA (cerebral vascular accident) Hypertension Heart diseaseFather Heart diseaseGrandmother CVA (cerebral vascular accident) Social History? Smoking Status:? Current every day smoker alcohol intake:? current alcohol intake frequency: holidays/special occasions only HPI HPI HPI: KAVITA ADAME, is a 66 F who presents to the office today for diarrhea.? The patient was having diarrhea 30 minutes after eating no matter what she eats.? She does not describe any abdominal pain.? She has never had a colonoscopy in the past.? She says that the diarrhea does not contain blood.? She says it is usually watery but it could just be loose stool.? This is been on for least a month. ROS General General: No weight change, appetite, fatigue, colon cancer, breast cancer or weakness HEENT HEENT: No difficulty swallowing, eye injury, eye surgery, swollen glands or hoarseness Endo Endocrine: Yes diabetes mellitus; No thyroid disease, thyroid cancer, Hair loss, heat intolerance or cold intolerance Skin Skin: No rash or changing moles Breast Breast: No left breast lump, right breast lump, nipple discharge, breast pain, abnormal mammogram, abnormal US or breast enlargement Musc Musculoskeletal: Yes arthritis; No back problems, rheumatoid arthritis, gout or joint pain Cardio Cardiovascular: Yes atrial fibrillation and high blood pressure; No murmur, pacemaker, heart disease, heart attack, heart stent, palpitations, shortness of breat with exertion or chest pain Psych Psychiatric: Yes anxiety; No depression or hearing voices Resp Respiratory: No shortness of breath, No sleep apnea, No cough, No COPD, Yes asthma, No emphysema and No wheezing Gastro Gastrointestinal: No abdominal pain, No nausea or vomiting, No diarrhea, No constipation, No blood in stool, No acid reflux, No hemorrhoids, No ulcers, No gallbladder problem and No black,tarry stools Markie Hematologic: Yes blood thinners, No blood disorders, No bleeding, No anemia and No blood clots Neuro Neurologic: No system reviewed and no additional complaints, except as documented, No as per HPI, No abnormal gait, No abnormal hearing, No abnormal movements, No abnormal speech, No behavioral changes, No burning sensations, No confusion, No convulsions, No disequilibrium, No dizziness, No localized weakness, No frequent falls, No headache(s), No lack of coordination, No loss of vision, No memory loss, No numbness, No other visual disturbances, No radicular pain, No restless legs, No sensory deficit, No syncope, No tingling, No tremor(s), No weakness and No other Exam Const General: cooperative Orientation: alert and oriented x3 HENMT Head: normal to inspection Neck Neck: normal visual inspection and full ROM Chest Chest palpation & inspection: normal inspection of the chest Resp Effort & Inspection: normal respiratory effort Auscultation: clear to auscultation bilaterally Cardio Rate: regular rate Rhythm: regular rhythm GI Inspection: non-distended Palpation: soft and nontender Skin General: no rashes or lesions noted Neuro General: patient alert and patient oriented x3 Extrem General: full ROM Psych Appearance: grossly normal Mental Status: mental status grossly normal Assessment and Plan Assessment and Plan (1) Diarrhea: ?Status:?Acute ?Plan: The patient has diarrhea 30-minute after meals.? The patient reports that this is been going on for about a month and it is not improving.? I will try her on a course of omeprazole to see if this is gastritis and then I will plan for an upper and lower scope.? Patient has never had a colonoscopy and is due as well and I will perform random biopsies of the colon.? She will hold her Coumadin for 3 days prior to the procedure. I explained endoscopy in detail to the patient.? I explained the risks including but not limited to stroke or heart attack with anesthesia, perforation of the GI tract, bleeding, infection.? I explained that any of these could necessitate further emergency surgery.? The patient understands and all questions were answered sufficiently.? The patient wishes to proceed with procedure. João Pantoja MD Pager: [facility] [address] [place] [address], [address] [place] [address] Office: I have re-examined the patient. There are no clinical changes since date of exam.
[2022-06-09 09:30] LABS: Bedside Glucose 209 mg/dL (74-106)
--- NOTE | 2022-06-09 10:00 | OP.EGD_ITS ---
Patient Name: Juanis Hurtado Procedure Date: 06/09/2022 9:33 AM Date of : 1955 Age: 66 Procedure: Upper GI endoscopy Indications: Diarrhea Providers: João Pantoja MD Medicines: Monitored Anesthesia Care Patient Profile: This is a 66 year old female. Refer to note in patient chart for documentation of history and physical. Complications: No immediate complications. Procedure: Pre-Anesthesia Assessment: - Prior to the procedure, a History and Physical was performed, and patient medications and allergies were reviewed. The patient's tolerance of previous anesthesia was also reviewed. The risks and benefits of the procedure and the sedation options and risks were discussed with the patient. All questions were answered, and informed consent was obtained. Prior Anticoagulants: The patient has taken no previous anticoagulant or antiplatelet agents. After reviewing the risks and benefits, the patient was deemed in satisfactory condition to undergo the procedure. After obtaining informed consent, the endoscope was passed under direct vision. Throughout the procedure, the patient's blood pressure, pulse, and oxygen saturations were monitored continuously. The gastroscope was introduced through the mouth, and advanced to the third part of duodenum. The upper GI endoscopy was accomplished without difficulty. The patient tolerated the procedure well. Scope In: 9:41:54 AM Scope Out: 9:43:47 AM Total Procedure Duration Time 0 hours 1 minute 53 seconds Findings: The esophagus was normal. The stomach was normal. The examined duodenum was normal. Biopsies were taken with a cold forceps in the gastric antrum for Helicobacter pylori testing. Impression: - Normal esophagus. - Normal stomach. - Normal examined duodenum. - Biopsies were taken with a cold forceps for Helicobacter pylori testing. Recommendation: - Discharge patient to home. - Resume previous diet. - Continue present medications. - Await pathology results. Procedure Code(s): --- Professional --- 12845, Esophagogastroduodenoscopy, flexible, transoral; with biopsy, single or multiple Diagnosis Code(s): --- Professional --- R19.7, Diarrhea, unspecified CPT copyright 2017 [employer]. All rights reserved. The codes documented in this report are preliminary and upon commercial leasing agent review may be revised to meet current compliance requirements. João Pantoja MD 06/09/2022 9:59:55 AM This report has been signed electronically. Number of Addenda: 0 Note Initiated On: 06/09/2022 9:33 AM
--- NOTE | 2022-06-09 10:00 | OP.CCLET_ITS ---
06/09/2022 Alec Arceo Re : Upper GI endoscopy procedure for Juanis Hurtado Dear Marielos This procedure was performed on Thursday, June 09, 2022. My impressions and recommendations are as follows: Impressions : - Normal esophagus. - Normal stomach. - Normal examined duodenum. - Biopsies were taken with a cold forceps for Helicobacter pylori testing. Recommendations : - Discharge patient to home. - Resume previous diet. - Continue present medications. - Await pathology results. My findings are described in the full procedure note, which is enclosed. If I can be of further assistance, please feel free to contact me at Doctor phone number(s): , Work: . Sincerely, João Pantoja MD 06/09/2022 9:59:55 AM This report has been signed electronically.
--- NOTE | 2022-06-09 10:02 | OP.COLON_ITS ---
Patient Name: Juanis Hurtado Procedure Date: 06/09/2022 9:44 AM Date of : 1955 Age: 66 Procedure: Colonoscopy Indications: Chronic diarrhea Providers: João Pantoja MD Medicines: Monitored Anesthesia Care Patient Profile: This is a 66 year old female. Refer to note in patient chart for documentation of history and physical. Last Colonoscopy: several years ago. Complications: No immediate complications. Estimated blood loss: Minimal. Procedure: Pre-Anesthesia Assessment: - Prior to the procedure, a History and Physical was performed, and patient medications and allergies were reviewed. The patient's tolerance of previous anesthesia was also reviewed. The risks and benefits of the procedure and the sedation options and risks were discussed with the patient. All questions were answered, and informed consent was obtained. Prior Anticoagulants: The patient has taken no previous anticoagulant or antiplatelet agents. After reviewing the risks and benefits, the patient was deemed in satisfactory condition to undergo the procedure. After I obtained informed consent, the scope was passed under direct vision. Throughout the procedure, the patient's blood pressure, pulse, and oxygen saturations were monitored continuously. The adult colonoscope was introduced through the anus and advanced to the cecum, identified by appendiceal orifice and ileocecal valve. The colonoscopy was performed without difficulty. The patient tolerated the procedure well. The quality of the bowel preparation was good. Scope In: 9:46:28 AM Scope Withdrawal Time 0 hours 5 minutes 36 seconds Scope Out: 9:56:44 AM Total Procedure Duration Time 0 hours 10 minutes 16 seconds Findings: The entire examined colon appeared normal on direct and retroflexion views. Biopsies for histology were taken with a cold forceps from the entire colon for evaluation of microscopic colitis. Impression: - The entire examined colon is normal on direct and retroflexion views. - Biopsies were taken with a cold forceps from the entire colon for evaluation of microscopic colitis. Recommendation: - Discharge patient to home. - Resume previous diet. - Continue present medications. - Await pathology results. - Repeat colonoscopy in 10 years for screening purposes. Procedure Code(s): --- Professional --- 01930, Colonoscopy, flexible; with biopsy, single or multiple Diagnosis Code(s): --- Professional --- K52.9, Noninfective gastroenteritis and colitis, unspecified CPT copyright 2017 [employer]. All rights reserved. The codes documented in this report are preliminary and upon clubhouse manager review may be revised to meet current compliance requirements. João Pantoja MD 06/09/2022 10:01:24 AM This report has been signed electronically. Number of Addenda: 0 Note Initiated On: 06/09/2022 9:44 AM
--- NOTE | 2022-06-09 10:02 | OP.CCLET_ITS ---
06/09/2022 Alec Arceo Re : Colonoscopy procedure for Juanis Hurtado Dear Marielos This procedure was performed on Thursday, June 09, 2022. My impressions and recommendations are as follows: Impressions : - The entire examined colon is normal on direct and retroflexion views. - Biopsies were taken with a cold forceps from the entire colon for evaluation of microscopic colitis. Recommendations : - Discharge patient to home. - Resume previous diet. - Continue present medications. - Await pathology results. - Repeat colonoscopy in 10 years for screening purposes. My findings are described in the full procedure note, which is enclosed. If I can be of further assistance, please feel free to contact me at Doctor phone number(s): , Work: . Sincerely, João Pantoja MD 06/09/2022 10:01:24 AM This report has been signed electronically.
== END 2022-06-09 11:02 | disposition home or self-care (01) ==
LOC: EN 07:47 → AC 07:48
PROVIDERS: PCP Family Medicine; Referring Provider Family Medicine; Visit Provider Surgery
PROC: 0DJD8ZZ Inspection of Lower Intestinal Tract, Via Natural or Artificial Opening Endoscopic (ICD-10-PCS; CPT 45378; principal; 2022-06-09 08:55)
DX: K29.70 Gastritis, unspecified, without bleeding (principal); D68.51 Activated protein C resistance; E11.9 Type 2 diabetes mellitus without complications; K52.9 Noninfective gastroenteritis and colitis, unspecified; I10 Essential (primary) hypertension; E78.00 Pure hypercholesterolemia, unspecified; K21.9 Gastro-esophageal reflux disease without esophagitis; M19.90 Unspecified osteoarthritis, unspecified site; F17.200 Nicotine dependence, unspecified, uncomplicated; Z79.01 Long term (current) use of anticoagulants; Z79.84 Long term (current) use of oral hypoglycemic drugs; Z79.899 Other long term (current) drug therapy; Z86.718 Personal history of other venous thrombosis and embolism
CPT/HCPCS: 43239; 45380; 36416; 82962; 85610; 88305; 88342; J7120; J2405

== ENCOUNTER → 2022-07-29 | Outpatient (CLI) | payer MEDICARE, SELFPAY | END | disposition home or self-care (01) | LOC: LABSPEC 10:03 | PROVIDERS: PCP Family Medicine; Visit Provider Family Medicine | DX: R19.7 Diarrhea, unspecified (principal) | CPT/HCPCS: 83630; 87177; 87209; 87493; 87506 ==

== ENCOUNTER → 2022-09-21 | Outpatient (CLI) | payer MEDICARE, SELFPAY ==
[2022-09-21 12:32] LABS: International Normalized Ratio 2.9; Prothrombin Time (Protime)PT. 29.8 SECONDS (11.7-14.9)
== END | disposition home or self-care (01) ==
LOC: BFHLAB 10:52
PROVIDERS: PCP Family Medicine; Visit Provider Family Medicine
DX: D68.51 Activated protein C resistance (principal)
CPT/HCPCS: 36415; 85610

== ENCOUNTER → 2023-01-29 | Outpatient (CLI) | payer MEDICARE, SELFPAY ==
[2023-01-29 16:39] LABS: Absolute Lymphocyte Count 1.57 X10^3/uL (0.83-4.51); Absolute Neutrophil Count 3.6 X10^3/uL (2.0-7.7); Basophil# 0.07 X10^3/uL; Basophil% 1.1 % (0-1); Eosinophil# 0.74 X10^3/uL; Eosinophils% 11.3 % (0-5); Hematocrit 53.2 % (37-47); Hemoglobin 16.8 g/dL (12.0-15.0); Lymphocyte # 1.57 X10^3/ul (0.83-4.51); Lymphocyte % 23.9 % (19-41); Mean Corp Hgb Conc 31.6 g/dL (32-36); Mean Corpuscular Hgb 29.4 pg (27.0-32.0); Mean Corpuscular Volume 93.2 fL (81-99); Mean Platelet Vol. 11.2 fl (6.2-12.0); Monocyte# 0.55 X10^3/uL; Monocyte% 8.4 % (0-10); NRBC Flagged by Analyzer 0 % (0-5); Neutrophil # 3.59 X10^3/uL (2.7-7.7); Neutrophil % 54.7 % (47-70); Platelet Count 276 K/mm3 (150-450); RBC Distribution Width CV 14.5 % (11.6-14.6); RBC Distribution Width SD 49.8 fl (35.1-43.9); Red Blood Count 5.71 M/mm3 (4.2-5.4); White Blood Count 6.6 K/mm3 (4.4-11.0)
[2023-01-29 16:49] LABS: AST(SGOT) 47 U/L (15-37); Alanine Aminotransfer ALT/SGPT 31 U/L (13-56); Albumin, Serum 3.3 g/dL (3.2-5.0); Alkaline Phosphatase 49 U/L (45-117); Anion Gap 4 (5-15); BUN 22 mg/dL (7-18); BUN/Creat Ratio 22.6 RATIO (10-20); Chloride 107 mmol/L (98-107); Cholesterol 167 mg/dL (200); Creatinine, Serum 0.97 mg/dL (0.55-1.02); EST Glomerular Filtration Rate 61 mL/min (>60); Est Glom Filt Rate - Afr Amer 74 mL/min (>60); Globulin 3.3 g/dL (2.2-4.2); Glucose 105 mg/dL (74-106); High Density Lipoprotein 46 mg/dL; Potassium 4.3 mmol/L (3.5-5.1); Protein, Total 6.6 g/dL (6.4-8.2); Sodium Level 140 mmol/L (136-145); Triglycerides 189 mg/dL; Very Low Density Lipoprotein 38 mg/dL (5-40)
[2023-01-29 17:03] LABS: Microalbumin,Random Urine 8.8 mg/L (NO RANGE EST.); Microalbumin:Creatinine Ratio 20.5 mg/g CRE (<30 mg/g CRE)
== END | disposition home or self-care (01) ==
LOC: BFHLAB 11:44
PROVIDERS: PCP Family Medicine; Visit Provider Family Medicine
DX: Z00.00 Encounter for general adult medical examination without abnormal findings (principal); E11.65 Type 2 diabetes mellitus with hyperglycemia; E78.5 Hyperlipidemia, unspecified
CPT/HCPCS: 36415; 80053; 80061; 82043; 82570; 85025

== ENCOUNTER → 2024-02-01 | Outpatient (CLI) | payer MEDICARE, SELFPAY ==
[2024-02-01 15:26] LABS: Absolute Lymphocyte Count 2.05 X10^3/uL (0.83-4.51); Absolute Neutrophil Count 3.2 X10^3/uL (2.0-7.7); Basophil# 0.06 X10^3/uL; Eosinophil# 0.22 X10^3/uL; Eosinophils% 3.6 % (0-5); Hematocrit 47.6 % (37-47); Hemoglobin 14.9 g/dL (12.0-15.0); Lymphocyte # 2.05 X10^3/ul (0.83-4.51); Lymphocyte % 33.6 % (19-41); Mean Corp Hgb Conc 31.3 g/dL (32-36); Mean Corpuscular Hgb 28.2 pg (27.0-32.0); Mean Platelet Vol. 11.6 fl (6.2-12.0); Monocyte# 0.52 X10^3/uL; Monocyte% 8.5 % (0-10); NRBC Flagged by Analyzer 0 % (0-5); Neutrophil # 3.23 X10^3/uL (2.7-7.7); Platelet Count 258 K/mm3 (150-450); RBC Distribution Width CV 14.1 % (11.6-14.6); RBC Distribution Width SD 46.5 fl (35.1-43.9); Red Blood Count 5.29 M/mm3 (4.2-5.4); White Blood Count 6.1 K/mm3 (4.4-11.0)
[2024-02-01 15:54] LABS: Microalbumin,Random Urine 27.6 mg/L (NO RANGE EST.); Microalbumin:Creatinine Ratio 29.8 mg/g CRE (<30 mg/g CRE)
[2024-02-01 16:24] LABS: AST(SGOT) 23 U/L (15-37); Alanine Aminotransfer ALT/SGPT 16 U/L (13-56); Albumin, Serum 3.2 g/dL (3.2-5.0); Alkaline Phosphatase 60 U/L (45-117); Anion Gap 5 (5-15); BUN 22 mg/dL (7-18); BUN/Creat Ratio 21.4 RATIO (10-20); Calcium,Total 9.1 mg/dL (8.5-10.1); Chloride 109 mmol/L (98-107); Cholesterol 186 mg/dL (200); Creatinine, Serum 1.03 mg/dL (0.55-1.02); EST Glomerular Filtration Rate 57 mL/min (>60); Est Glom Filt Rate - Afr Amer 69 mL/min (>60); Globulin 3.2 g/dL (2.2-4.2); Glucose 245 mg/dL (74-106); High Density Lipoprotein 46 mg/dL; Potassium 4.3 mmol/L (3.5-5.1); Protein, Total 6.4 g/dL (6.4-8.2); Sodium Level 140 mmol/L (136-145); Triglycerides 181 mg/dL; Very Low Density Lipoprotein 36 mg/dL (5-40)
== END | disposition home or self-care (01) ==
LOC: BFHLAB 11:19
PROVIDERS: PCP Family Medicine; Visit Provider Family Medicine
DX: Z00.00 Encounter for general adult medical examination without abnormal findings (principal); E11.65 Type 2 diabetes mellitus with hyperglycemia; E78.5 Hyperlipidemia, unspecified
CPT/HCPCS: 36415; 80053; 80061; 82043; 82570; 85025

== ENCOUNTER → 2024-02-09 | Outpatient (CLI) | payer MEDICARE, SELFPAY ==
--- NOTE | 2024-02-09 10:14 | BI_ITS ---
MAMMOGRAPHY - BILATERAL SCREENING REASON FOR EXAM: Female, 68 years old. Routine annual screening examination. PERTINENT HISTORY: Non-contributory. TECHNIQUE: Digital bilateral breast chaim (3D mammographic acquisition) in the CC and MLO projections. 2-D mediolateral oblique (MLO) and craniocaudad (CC) views of both breasts were obtained. CAD: Full Field Digital Mammography with Computer Added Detection was performed. COMPARISON: None. Baseline examination. FINDINGS: Breast Composition: The breasts are almost entirely fatty. There are no dominant masses or suspicious calcifications. No other significant abnormalities are identified. BI/SCRN MAMM (CAD)W/CHAIM BILAT IMPRESSION: Negative screening mammogram. Yearly followup mammogram recommended. (A) ASSESSMENT CATEGORY: BIRADS Category 1: Negative. A letter regarding these results will be sent to the patient by the facility within 30 days. Approximately 10% of breast cancers are not detected by mammography. A normal mammogram should not delay biopsy of a clinically suspicious abnormality. [id number] Electronically Signed: Marvin Hanley MD at 12:58 EDT ,
== END | disposition home or self-care (01) ==
LOC: OPBI 10:12
PROVIDERS: PCP Family Medicine; Referring Provider Family Medicine; Visit Provider Family Medicine
DX: Z12.31 Encounter for screening mammogram for malignant neoplasm of breast (principal)
CPT/HCPCS: 77063; 77067

== ENCOUNTER → 2024-03-06 | Outpatient (CLI) | payer MEDICARE, SELFPAY | END | disposition home or self-care (01) | LOC: BFHLAB 14:49 → LABSPEC 14:51 | PROVIDERS: PCP Family Medicine; Referring Provider Family Medicine; Visit Provider Family Medicine | DX: R31.9 Hematuria, unspecified (principal) | CPT/HCPCS: 87086; 87088; 87186 ==

== ENCOUNTER → 2024-06-06 | Outpatient (CLI) | payer MEDICARE, SELFPAY ==
--- NOTE | 2024-06-06 14:23 | CT_ITS ---
STUDY: LOW DOSE CT LUNG CANCER SCREENING REASON FOR EXAM: Female, 68 years old. lung cancer screening -- and gt;20 pk yr hx;current smoker;asymptomatic RADIATION DOSAGE (If Supplied By Facility): CTDIvol = ( 2.39 ) mGy, DLP = ( 71.17 ) mGycm TECHNIQUE: No contrast was administered. Low dose technique was utilized (average mAS-38 and kVp 120). 1.25 mm axial source images with a slice interval of 1.25-mm were reconstructed in lung windows. 2.5 mm axial source images with a slice interval of 2.5-mm were reconstructed in lung windows. 5.0 mm axial source images with a slice interval of 5.0-mm were reconstructed in soft tissue windows. COMPARISON: None. NODULES: No suspicious nodules are seen. Emphysema: Mild emphysematous changes. Endobronchial lesion: None Aorta: Minimal atherosclerotic plaque formation of the aortic arch. CORONARY ARTERIES: Coronary artery calcification is seen. Heart: Unremarkable Pulmonary artery: Unremarkable Mediastinal nodes: Unremarkable Other chest and abdominal findings: CT/Low Dose CT Lung Screening IMPRESSION: Lung-RADS category 2 - Continue annual screening with LDCT in 12 months. IMPORTANT NOTES FOR USE: ACR Lung-RADS Version 1.1 Assessment Categories Release Date: 2018 Category: Coded 0-4 bases on nodule(s) with highest degree of suspicion. Negative screen is defined as categories 1 and 2; a positive screen is defined as categories 3 and 4. Category 3 and 4A nodules that are unchanged on interval CT should be coded as category 2, and individuals returned to screening in 12 months. Category 4X: Category 3 or 4 nodules with additional imaging findings that increase the suspicion of lung cancer, such as spiculation, GGN that doubles in size in 1 year, enlarged lymph notes, etc. Category Modifiers: S (significant finding unrelated to lung cancer) Electronically Signed: Marvin Hanley MD at 14:52 EDT ,
== END | disposition home or self-care (01) ==
PROVIDERS: PCP Family Medicine; Referring Provider Nurse Practitioner Family; Visit Provider Nurse Practitioner Family
DX: Z12.2 Encounter for screening for malignant neoplasm of respiratory organs (principal); Z87.891 Personal history of nicotine dependence
CPT/HCPCS: 71271

== ENCOUNTER → 2025-02-08 | Outpatient (CLI) | payer MEDICARE, SELFPAY ==
[2025-02-08 10:20] LABS: Absolute Lymphocyte Count 1.87 X10^3/uL (0.83-4.51); Absolute Neutrophil Count 4.4 X10^3/uL (2.0-7.7); Basophil# 0.08 X10^3/uL; Basophil% 1.1 % (0-1); Eosinophil# 0.28 X10^3/uL; Eosinophils% 3.9 % (0-5); Hematocrit 43.9 % (37-47); Hemoglobin 13.8 g/dL (12.0-15.0); Lymphocyte # 1.87 X10^3/ul (0.83-4.51); Lymphocyte % 25.9 % (19-41); Mean Corp Hgb Conc 31.4 g/dL (32-36); Mean Corpuscular Hgb 27.8 pg (27.0-32.0); Mean Corpuscular Volume 88.5 fL (81-99); Mean Platelet Vol. 11.3 fl (6.2-12.0); Monocyte# 0.57 X10^3/uL; Monocyte% 7.9 % (0-10); NRBC Flagged by Analyzer 0 % (0-5); Neutrophil # 4.41 X10^3/uL (2.7-7.7); Neutrophil % 60.9 % (47-70); Platelet Count 241 K/mm3 (150-450); RBC Distribution Width CV 16.7 % (11.6-14.6); RBC Distribution Width SD 53.8 fl (35.1-43.9); Red Blood Count 4.96 M/mm3 (4.2-5.4); White Blood Count 7.2 K/mm3 (4.4-11.0)
[2025-02-08 10:32] LABS: Hemoglobin A1c 7.4 % (<=5.6)
[2025-02-08 10:35] LABS: ALB/GLOB Ratio 1.3 RATIO (0.9-2.4); AST(SGOT) 38 U/L (<=31); Alanine Aminotransfer ALT/SGPT 20 U/L (<=34); Albumin, Serum 3.6 g/dL (3.4-4.8); Alkaline Phosphatase 52 U/L (35-104); Anion Gap 8 (5-15); BUN 21 mg/dL (4-19); BUN/Creat Ratio 21.8 RATIO (10-20); Calcium,Total 9.1 mg/dL (7.6-11.0); Carbon Dioxide 27.5 mmol/L (21.0-32.0); Chloride 107 mmol/L (98-108); Cholesterol 133 mg/dL (<=200); Creatinine, Serum 0.96 mg/dL (0.70-1.20); EST Glomerular Filtration Rate 65 (>60); Globulin 2.7 g/dL (2.2-4.2); Glucose 118 mg/dL (70-99); High Density Lipoprotein 26 mg/dL; Low Density Lipoprotein Calc. 62 mg/dL; Potassium 4.9 mmol/L (3.3-5.1); Protein, Total 6.2 g/dL (5.9-8.4); Sodium Level 143 mmol/L (133-145); Total Bilirubin 0.51 mg/dL (0.00-1.30); Triglycerides 226 mg/dL; Very Low Density Lipoprotein 45 mg/dL (5-40); cholesterol:hdl ratio screen 5.16
[2025-02-08 10:46] LABS: International Normalized Ratio 2.8; Prothrombin Time (Protime)PT. 30.2 SECONDS (11.7-14.9)
[2025-02-08 11:37] LABS: Microalbumin,Random Urine 30.1 mg/L (NO RANGE EST.)
== END | disposition home or self-care (01) ==
LOC: BFHLAB 08:57
PROVIDERS: PCP Family Medicine; Visit Provider Family Medicine
DX: Z00.00 Encounter for general adult medical examination without abnormal findings (principal); E11.65 Type 2 diabetes mellitus with hyperglycemia; E78.5 Hyperlipidemia, unspecified; D68.51 Activated protein C resistance
CPT/HCPCS: 36415; 80053; 80061; 82043; 82570; 83036; 85025; 85610